=== PATIENT | female | born 1950 | race Caucasian/White ===

== ENCOUNTER → 2018-07-28 | Outpatient (CLI) | payer MEDICARE, OTHER ==
[~2018-07-28] MED LIST: CITA-156 PO; CITA20SO PO; GABA-503 PO; GABA-549 PO; MIRT-1 PO; PREG50CA48 PO; ZOLP-1 PO
[2018-07-28 14:47] LABS: PLATELET COUNT, AUTOMATED 297 K/uL (150-450)
[2018-07-28 15:08] LABS: LDL CHOLESTEROL 90 mg/dl
--- NOTE | 2018-07-29 14:19 | EKG ---
[place] [facility] [place] NAME: DAMION BOWDEN : [id number] MR: [id number] V: [id number] EXAM DATE: ORDERING PHYSICIAN: FAUSTO JOHNSON TECHNOLOGIST: PASQUALE Test Reason : AFIB Blood Pressure : / mmHG Vent. Rate : 095 BPM Atrial Rate : 340 BPM P-R Int : 000 ms QRS Dur : 084 ms QT Int : 352 ms P-R-T Axes : 000 216 169 degrees QTc Int : 442 ms Atrial fibrillation Low voltage QRS Inferior infarct , age undetermined Abnormal ECG No previous ECGs available Referred By: MEGAN Confirmed By:
== END ==
LOC: LAB 14:15
PROVIDERS: ATTEND Internal Medicine
DX: F41.9 Anxiety disorder, unspecified (principal); I48.91 Unspecified atrial fibrillation; Z86.69 Personal history of other diseases of the nervous system and sense organs; Z86.2 Personal history of diseases of the blood and blood-forming organs and certain disorders involving the immune mechanism; G47.33 Obstructive sleep apnea (adult) (pediatric); R41.3 Other amnesia
CPT/HCPCS: 36415; 81001; 82040; 82247; 82306; 82310; 82374; 82435; 82465; 82565; 82607; 82728; 82746; 82947; 83540; 83550; 83718; 84075; 84132; 84155; 84295; 84443; 84450; 84460; 84478; 84520; 84550; 85025

== ENCOUNTER → 2018-08-07 | Outpatient (CLI) | payer MEDICARE, OTHER ==
[~2018-08-07] MED LIST changes: +MIRT-25 PO
== END ==
LOC: US 01:16
PROVIDERS: ATTEND Internal Medicine
DX: I07.1 Rheumatic tricuspid insufficiency (principal); I34.0 Nonrheumatic mitral (valve) insufficiency
CPT/HCPCS: 93306

== ENCOUNTER → 2018-08-13 | Outpatient (CLI) | payer MEDICARE, OTHER ==
[~2018-08-13] MED LIST changes: +WARF5TAB23 PO
[2018-08-13 15:05] LABS: INR 0.91
== END ==
LOC: LAB 14:15
PROVIDERS: ATTEND Internal Medicine
DX: Z79.01 Long term (current) use of anticoagulants (principal)
CPT/HCPCS: 36415; 85610

== ENCOUNTER → 2018-08-27 | Outpatient (CLI) | payer MEDICARE, OTHER ==
[2018-08-27 15:59] LABS: INR 2.46
== END ==
LOC: LAB 15:19
PROVIDERS: ATTEND Internal Medicine
DX: Z79.01 Long term (current) use of anticoagulants (principal)
CPT/HCPCS: 36415; 85610

== ENCOUNTER → 2018-09-04 | Outpatient (CLI) | payer MEDICARE, OTHER ==
[2018-09-04 12:21] LABS: INR 3.2
== END ==
LOC: LAB 11:54
PROVIDERS: ATTEND Internal Medicine
DX: Z51.81 Encounter for therapeutic drug level monitoring (principal); Z79.01 Long term (current) use of anticoagulants; I48.1 Persistent atrial fibrillation
CPT/HCPCS: 36415; 85610

== ENCOUNTER → 2018-09-07 | Outpatient (CLI) | payer MEDICARE, OTHER ==
[2018-09-07 11:40] LABS: INR 2.81
== END ==
LOC: LAB 11:23
PROVIDERS: ATTEND Internal Medicine
DX: I48.91 Unspecified atrial fibrillation (principal)
CPT/HCPCS: 36415; 85610

== ENCOUNTER → 2018-09-18 | Outpatient (CLI) | payer MEDICARE, OTHER ==
[~2018-09-18] MED LIST changes: +AMIO200T49 PO; +OMEP40CA48 PO
== END ==
LOC: LAB 10:31
PROVIDERS: ATTEND Internal Medicine
DX: Z51.81 Encounter for therapeutic drug level monitoring (principal); Z79.01 Long term (current) use of anticoagulants; I48.1 Persistent atrial fibrillation

== ENCOUNTER → 2018-09-18 | Outpatient (CLI) | payer MEDICARE, OTHER ==
[2018-09-18 11:04] LABS: PLATELET COUNT, AUTOMATED 327 K/uL (150-450)
[2018-09-18 11:12] LABS: INR 4.58
== END ==
LOC: LAB 10:28
PROVIDERS: ATTEND Nurse Practitioner Primary Care
DX: K92.1 Melena (principal)
CPT/HCPCS: 36415; 85025; 85610

== ENCOUNTER → 2018-09-25 | Outpatient (CLI) | payer MEDICARE, OTHER ==
[2018-09-25 11:25] LABS: INR 1.84
== END ==
LOC: LAB 10:57
PROVIDERS: ATTEND Internal Medicine
DX: I48.91 Unspecified atrial fibrillation (principal)
CPT/HCPCS: 36415; 85610

== ENCOUNTER → 2018-09-28 | Outpatient (CLI) | payer MEDICARE, OTHER ==
[~2018-09-28] MED LIST changes: +FERR325T24 PO
[2018-09-28 11:32] LABS: PLATELET COUNT, AUTOMATED 403 K/uL (150-450)
== END ==
LOC: LAB 10:42
PROVIDERS: ATTEND Nurse Practitioner Primary Care
DX: K92.1 Melena (principal)
CPT/HCPCS: 36415; 82040; 82247; 82310; 82374; 82435; 82565; 82728; 82947; 83540; 83550; 84075; 84132; 84155; 84295; 84450; 84460; 84520; 85025

== ENCOUNTER → 2018-09-28 | Outpatient (CLI) | payer MEDICARE, OTHER ==
[2018-09-28 11:37] LABS: INR 2.06
== END ==
LOC: LAB 10:45
PROVIDERS: ATTEND Internal Medicine
DX: I48.91 Unspecified atrial fibrillation (principal); Z79.01 Long term (current) use of anticoagulants
CPT/HCPCS: 85610

== ENCOUNTER → 2018-09-30 | Outpatient (CLI) | payer MEDICARE, OTHER ==
[2018-09-30 11:45] LABS: INR 2.34
== END ==
LOC: LAB 11:11
PROVIDERS: ATTEND Internal Medicine
DX: Z51.81 Encounter for therapeutic drug level monitoring (principal); Z79.01 Long term (current) use of anticoagulants; I48.1 Persistent atrial fibrillation
CPT/HCPCS: 36415; 85610

== ENCOUNTER 2018-10-09 11:32 | Emergency (ER) | payer MEDICARE, OTHER ==
[~2018-10-09 11:32] MED LIST changes: +DULO30CA35 PO; +DULO60CA56 PO; -GABA-503 PO; +GABA-533 PO
--- NOTE | 2018-10-09 11:52 | ER Report ---
History and Physical Time Seen By MD: 11:52 HPI/ROS CHIEF COMPLAINT: Unintentional weight gain and edema HISTORY OF PRESENT ILLNESS: This is a 68-year-old female who presents to the emergency department for unintentional weight gain and edema. Patient states that over the last 2 weeks she's had about a 14+ pound weight gain, increased edema in her lower extremities, she also has some mild dyspnea and eyelid edema. She states that about a month or 2 months ago she had bronchitis, was and resolved, however the last several weeks she has had an increase a nonproductive cough, with some mild dyspnea over the last several days. Also has some edema to the left inferior orbit, non celluilitic. No chest pain, no nausea or vomiting. SPO2 upon arrival was 83% on RA, patient does not wear oxygen. No history of congestive heart failure. Status post cardioversion October 01 for atria fibrillation. Started on warfarin approximately 2 months ago. She is also on amiodarone. REVIEW OF SYSTEMS: Constitutional: No fever, no chills. Eyes: No discharge. ENT: No sore throat. Cardiovascular: As above. Respiratory: As above. Gastrointestinal: No abdominal pain, no vomiting. Genitourinary: No hematuria. Musculoskeletal: As above. Skin: No rashes. Neurological: No headache. Allergies: Coded Allergies: bupropion (Verified Allergy, Intermediate, 10/09/18) erythromycin base (Verified Allergy, Intermediate, 10/09/18) Home Meds Active Scripts Furosemide (FUROSEMIDE) 20 Mg Tablet, 2 TAB PO Q6H for 3 Days, #6 TAB 0 Refills Prov:VANITA RINCON [facility]- 10/09/18 Ferrous Sulfate (IRON) 325 Mg Tablet, 1 CAP PO BID, #60 TAB 0 Refills Prov:CLAUDIA STANLEY DNP [facility] 10/01/18 Omeprazole (OMEPRAZOLE) 40 Mg Capsule., 1 TAB PO QDAY for 30 Days, #30 CAP 0 Refills Prov:CLAUDIA STANLEY DNP, [facility] 09/15/18 Warfarin Sodium (WARFARIN SODIUM) 5 Mg Tablet, 5 MG PO QDAY, #30 TAB 6 Refills Prov:FAUSTO BENTLEY MD 08/13/18 Mirtazapine (MIRTAZAPINE) 30 Mg Tablet, 30 MG PO QHS, #30 TAB 3 Refills Prov:FAUSTO BENTLEY MD 08/03/18 Reported Medications Warfarin Sodium (WARFARIN SODIUM) 5 Mg Tablet, 2.5 MG PO FRIDAY, FRIDAY , TAB 10/09/18 Amiodarone Hcl (AMIODARONE HCL) Unknown Strength Tablet, 500 MG PO QDAY, TAB 09/15/18 Gabapentin (GABAPENTIN) 600 Mg Tablet, 600 MG PO QID 07/28/18 Discontinued Reported Medications Citalopram Hydrobromide (CELEXA) 20 Mg Tablet, 20 MG PO QDAY, #5 TAB 07/28/18 Discontinued Scripts Duloxetine Hcl (CYMBALTA) 60 Mg Capsule., 60 MG PO QDAY, #30 CAP 5 Refills Prov:FAUSTO BENTLEY MD 10/02/18 Duloxetine Hcl (CYMBALTA) 30 Mg Capsule., 30 MG PO QDAY, #7 CAP Prov:FAUSTO BENTLEY MD 10/02/18 Past Medical/Surgical History The patient has a past medical and surgical history of cardioversion, appendectomy, urinary retention, leg fracture, bilateral foot surgeries, knee surgery, wears glasses, depression, hysterectomy. Reviewed Nurses Notes: Yes Smoking Status: Current: Every Day Smoker Constitutional Vital Sign - Last 24 Hours 10/09/18 10/09/18 10/09/18 10/09/18 11:47 11:48 11:50 12:00 Temp 98.1 Pulse 71 Resp 18 18 B/P (MAP) 151/90 (110) 151/90 140/63 (88) Pulse Ox 82 85 O2 Delivery Room Air Room Air 10/09/18 10/09/18 10/09/18 10/09/18 12:02 12:30 12:32 12:37 Pulse 67 63 63 B/P (MAP) 147/65 (92) Pulse Ox 92 94 95 10/09/18 10/09/18 10/09/18 10/09/18 12:38 12:38 12:46 13:00 Pulse 62 60 Resp 16 16 B/P (MAP) 151/64 (93) Pulse Ox 94 O2 Delivery Nasal Cannula O2 Flow Rate 1.5 10/09/18 10/09/18 10/09/18 10/09/18 13:07 13:30 13:30 13:37 Pulse 59 65 Resp 11 14 B/P (MAP) 143/69 (93) Pulse Ox 94 87 O2 Flow Rate 2.0 10/09/18 10/09/18 14:33 15:30 Pulse 55 B/P (MAP) 145/56 (85) 142/69 (93) Physical Exam General Appearance: The patient is alert, has no immediate need for airway protection and no signs of toxicity. Eyes: Pupils equal and round no pallor or injection. Mild edema to the left infe rior orbit. ENT, Mouth: Mucous membranes are moist. Respiratory: There are no retractions, lungs are clear to auscultation. Cardiovascular: Regular rate and rhythm, systolic murmur, no clicks or rubs. Gastrointestinal: Abdomen is soft and non tender, no masses, bowel sounds normal. Neurological: Alert and oriented 4. Moving all cavities. Following THIS. No focal neuro deficits. Skin: Warm and dry, no rashes. Musculoskeletal: Neck is supple non tender. Extremities nonpitting edema to bilateral lower extremities. No weeping. No cellulitis. DIFFERENTIAL DIAGNOSIS: After history and physical exam differential diagnosis was considered for congestive heart failure, electrolyte imbalance, low protein, recurrent atrial fibrillation. Medical Decision Making Data Points Result Diagram: 10/09/18 1222 10/09/18 1222 Laboratory Hematology Test 10/09/18 12:22 Red Blood Count 3.82 M/uL (4.17-5.56) Mean Corpuscular Volume 85.5 fL (80.0-96.0) Mean Corpuscular Hemoglobin 27.0 pg (26.0-33.0) Mean Corpuscular Hemoglobin Concent 31.6 g/dL (32.0-36.0) Red Cell Distribution Width 16.6 % (11.5-14.5) Mean Platelet Volume 7.2 fL (7.2-11.1) Neutrophils (%) (Auto) 65.3 % (39.4-72.5) Lymphocytes (%) (Auto) 22.7 % (17.6-49.6) Monocytes (%) (Auto) 7.4 % (4.1-12.4) Eosinophils (%) (Auto) 2.5 % (0.4-6.7) Basophils (%) (Auto) 2.1 % (0.3-1.4) Nucleated RBC Relative Count (auto) 0.1 /100WBC Neutrophils # (Auto) 4.1 K/uL (2.0-7.4) Lymphocytes # (Auto) 1.4 K/uL (1.3-3.6) Monocytes # (Auto) 0.5 K/uL (0.3-1.0) Eosinophils # (Auto) 0.2 K/uL (0.0-0.5) Basophils # (Auto) 0.1 K/uL (0.0-0.1) Nucleated RBC Absolute Count (auto) 0.01 K/uL Prothrombin Time 31.3 seconds (12.0-14.4) Prothromb Time International Ratio 2.95 Activated Partial Thromboplast Time 40 seconds (23-35) D-Dimer Quantitative (PE/DVT) 0.43 ug/ml (0-0.50) Sodium Level 142 mmol/L (137-145) Potassium Level 3.3 mmol/L (3.5-5.0) Chloride Level 108 mmol/L (98-107) Carbon Dioxide Level 27 mmol/L (22-31) Blood Urea Nitrogen 12 mg/dl (7-18) Creatinine 0.70 mg/dl (0.52-1.04) Glomerular Filtration Rate Calc > 60.0 Random Glucose 119 mg/dl (75-110) Calcium Level 8.8 mg/dl (8.4-10.2) Total Bilirubin 0.7 mg/dl (0.2-1.3) Aspartate Amino Transf (AST/SGOT) 28 U/L (0-35) Alanine Aminotransferase (ALT/SGPT) 33 U/L (0-56) Alkaline Phosphatase 84 U/L (0-126) Troponin I < 0.012 ng/ml B-Type Natriuretic Peptide 103 pg/ml (0-100) Total Protein 6.4 g/dl (6.3-8.2) Albumin 3.6 g/dl (3.5-5.0) Chemistry Test 10/09/18 12:22 White Blood Count 6.2 k/uL (4.5-11.0) Red Blood Count 3.82 M/uL (4.17-5.56) Hemoglobin 10.3 g/dL (12.0-16.0) Hematocrit 32.7 % (34.0-47.0) Mean Corpuscular Volume 85.5 fL (80.0-96.0) Mean Corpuscular Hemoglobin 27.0 pg (26.0-33.0) Mean Corpuscular Hemoglobin Concent 31.6 g/dL (32.0-36.0) Red Cell Distribution Width 16.6 % (11.5-14.5) Platelet Count 378 K/uL (150-450) Mean Platelet Volume 7.2 fL (7.2-11.1) Neutrophils (%) (Auto) 65.3 % (39.4-72.5) Lymphocytes (%) (Auto) 22.7 % (17.6-49.6) Monocytes (%) (Auto) 7.4 % (4.1-12.4) Eosinophils (%) (Auto) 2.5 % (0.4-6.7) Basophils (%) (Auto) 2.1 % (0.3-1.4) Nucleated RBC Relative Count (auto) 0.1 /100WBC Neutrophils # (Auto) 4.1 K/uL (2.0-7.4) Lymphocytes # (Auto) 1.4 K/uL (1.3-3.6) Monocytes # (Auto) 0.5 K/uL (0.3-1.0) Eosinophils # (Auto) 0.2 K/uL (0.0-0.5) Basophils # (Auto) 0.1 K/uL (0.0-0.1) Nucleated RBC Absolute Count (auto) 0.01 K/uL Prothrombin Time 31.3 seconds (12.0-14.4) Prothromb Time International Ratio 2.95 Activated Partial Thromboplast Time 40 seconds (23-35) D-Dimer Quantitative (PE/DVT) 0.43 ug/ml (0-0.50) Glomerular Filtration Rate Calc > 60.0 Calcium Level 8.8 mg/dl (8.4-10.2) Total Bilirubin 0.7 mg/dl (0.2-1.3) Aspartate Amino Transf (AST/SGOT) 28 U/L (0-35) Alanine Aminotransferase (ALT/SGPT) 33 U/L (0-56) Alkaline Phosphatase 84 U/L (0-126) Troponin I < 0.012 ng/ml B-Type Natriuretic Peptide 103 pg/ml (0-100) Total Protein 6.4 g/dl (6.3-8.2) Albumin 3.6 g/dl (3.5-5.0) Coagulation Test 10/09/18 12:22 Prothrombin Time 31.3 seconds Prothromb Time International Ratio 2.95 Activated Partial Thromboplast Time 40 seconds D-Dimer Quantitative (PE/DVT) 0.43 ug/ml EKG/Imaging EKG Interpretation 12 lead EKG: The EKG 1234. Rhythm: Sinus rhythm, first-degree AV block, ventricular rate 62 bpm. [place]: Left axis deviation. QRS: normal ST segments: No ST depression or elevation identified. Poor T-wave progression, in the field leads, inverted T waves in V3, V4, V5 and V6. 07/28/2018 EKG showing atrial fibrillation. Imaging Location: [facility] - [place] Patient: Isabella Fountain : 1950 Visit/Account:[id number] Date of Sevice: 10/09/2018 CT CHEST (CONTRAST) History: eval for hiat hernia, with low spo2 TECHNIQUE: Contiguous axial images were performed through the chest to the level of the adrenal glands following the administration of IV contrast. Coronal and sagittal reformatting was also performed.Dose Lowering Technique One of the following dose optimization techniques was utilized in the performance of this exam: Automated exposure control; adjustment of the mA and/or kV according to the patient's size; or use of an iterative reconstruction technique. Specific details can be referenced in the facility's radiology CT exam operational policy. Contrast: 75 mL Isovue-370 COMPARISON STUDIES: Two-view chest today Lungs / Pleura: Thereare peripheral groundglass opacities seen in the anterior upper lobes. Patchy area of airspace consolidation seen in the posterior superior segment of the right lower lobe and in the posterior segments of both lower lobes and the inferior lingula. This could represent multifocal infiltrates or areas of chronic change. No pleural effusions are identified. Mediastinum/nodes: There is a 1.2 x 1 cm pretracheal lymph node small subcentimeter precarinal and prevascular space lymph nodes There is a 1.3 cm left thyroid nodule for which thyroid ultrasound may be he lpful. There is a very large hiatal hernia present Heart and vessels: There are coronary artery calcifications present Musculoskeletal / Body wall: There spondylotic changes of the thoracic spine Upper abdomen: Cholelithiasis although no evidence of bony ductal dilatation. There is a patchy area of arterial perfusion along the posterior medial aspect of the right lobe the liver. This may simply represent perfusional variant however if of concern clinically this could be further evaluated with ultrasound or MR IMPRESSION: Very large hiatal hernia Peripheral ground glass opacities in the anterior upper lobes and patchy airspace consolidation the posterior superior segment of the right lower lobe and in the posterior segments of both lower lobes and inferior lingula. These could represent areas of multifocal infiltrate or areas of chronic change. Small mediastinal lymph nodes 1.3 cm left thyroid nodule for which thyroid ultrasound may be helpful Cholelithiasis although no evidence of bony ductal dilatation Area of patchy arterial perfusion along the posterior medial aspect the right lobe of the liver. This may simple represent a perfusional variant. If c linical concern further evaluation with ultrasound or MR may be helpful Report Dictated By: Candy Jiang MD at 10/09/2018 2:46 PM Report E-Signed By: Candy Jiang MD at 10/09/2018 2:52 PM WSN:[email or web address] Location: [facility] [place] Patient: Isabella Fountain : 1950 Visit/Account:[id number] Date of Sevice: 10/09/2018 Exam type: CHEST PA LAT History: hypoxia, unintentional wt gain Comparison: None. Findings: There is a very large hiatal hernia with an air-fluid level projecting in the retrocardiac space. Small amount linear stranding in the right middle lobe may represent scarring versus atelectasis. There is blunting of both costophrenic angles consistent with pleural thickening versus pleural effusions. There is no evidence of overt pulmonary edema. Cardiac silhouette appears mildly enlarged. There is mild to moderate degenerative changes of the thoracic spine IMPRESSION: 1. Very large hiatal hernia with air-fluid level projecting in the retrocardiac space Linear scarring versus atelectasis the right middle lobe Blunting of both costophrenic angles consistent with pleural thickening versus pleural effusions (there are no prior studies available for comparison) Report Dictated By: Candy Jiang MD at 10/09/2018 1:22 PM Report E-Signed By: Candy Jiang MD at 10/09/2018 1:23 PM [place] ED Course/Re-evaluation Clinical Indication for ER IV: IV Access ED Course The patient was admitted to room. A history and physical were obtained. Differential diagnoses were considered. An IV was started. CBC showing hemoglobin and hematocrit 0.3 and 32.7, potassium 3.3. The patient was given 40 mg IV Lasix. A two-view chest x-ray showing Very large hiatal hernia with air- fluid level projecting in the retrocardiac space, Linear scarring versus atelectasis the right middle lobe. I was still concerned about the hypoxia, a CT of the chest showing a Very large hiatal hernia Peripheral ground glass opacities in the anterior upper lobes and patchy airspace consolidation the posterior superior segment of the right lower lobe and in the posterior segments of both lower lobes and inferior lingula. These could represent areas of multifocal infiltrate or areas of chronic change. I reviewed this with the patient,, I also reviewed the case with Dr. Branch as noted below, did not feel that she warranted antibiotics at this time she is not febrile, normal white blood cell count, the likelihood of a pneumonia is low at this time. A room air trial after the furosemide was at 83%. She was placed back on oxygen., Patient did not list in the hospital, she would prefer to go home. The patient was set up with home oxygen and discharged. She was also placed on 3 days worth of Lasix, instructed to take additional potassium and follow-up with her primary care provider next week. She was also instructed to return immediately for any other concerns or worsening symptoms. She comes to understanding was discharged home. EKG showing normal sinus rhythm with first-degree AV block. We also discussed the hernia, she will follow-up with Dr. Hooks. 10/09/2018 4:40:34 pm I did speak with Dr. Lakia Branch regarding the patients case, however the patient would prefer to go home instead of admitting to the hospital. Patient will be going home on oxygen. I also spoke with Dr. Hooks the surgeon on-call regarding the patient's new diagnosis of large hiatal hernia, he will follow up with her soon regarding the hernia. The patient is aware and agreeable. The patient will also follow up with her primary care provider early next week. Decision to Disposition Date: Oct 09, 2018 Decision to Disposition Time: 16:11 Depart Departure Latest Vital Signs Vital Signs Date Time Temp Pulse Resp B/P (MAP) Pulse Ox O2 Delivery O2 Flow Rate FiO2 10/09/18 15:30 55 142/69 (93) 10/09/18 13:37 14 87 10/09/18 13:30 2.0 10/09/18 12:38 Nasal Cannula 10/09/18 11:50 98.1 Impression: Primary Impression: Hypoxia Additional Impressions: Lower extremity edema Large hiatal hernia Condition: Improved Disposition: HOME OR SELF-CARE Referrals: FAUSTO BENTLEY MD (PCP) 5 Days BERT HOOKS 1 Week New Scripts Furosemide (FUROSEMIDE) 20 Mg Tablet 2 TAB PO Q6H for 3 Days, #6 TAB 0 Refills Prov: VANITA RINCON 10/09/18 Departure Forms: ER Transition Record, Home Oxygen, Nebulizer RX, Home Oxygen Company Chosen by Patient: [employer] Durable Medical Equipment-Oxygen: Oxygen Concentrator, Portable Oxygen Gas Reason for Use/Diagnosis: Edema, hypoxia and dyspnea Start Date of the Order: Oct 09, 2018 Dosage or Concentration (if applicable) - LPM: 2 Route of Administration (if applicable): Nasal Cannula Frequency of Use: Continuous Duration Home O2 Required: 30 Duration Units: Days Room Air Oxygen Saturation: 83 ER Prescribing Physician's Name: Other NPI Numbers for Local ER MDs: Other Medications Reconciliation, Patient Portal Information Patient Instructions: Edema (ED), Hiatal Hernia (ED), Hypoxia (ED) Additional Instructions: Please use the Oxygen continuously until you follow up with Dr. Bentley and he specifies if you should continue the Oxygen. Take the lasix X3 days. Increase your dietary potassium. Get plenty of rest. Please follow up with Dr. Bentley within one week for reevaluation. You will likely need a repeat echo. Return to the emergency room for any concerns or worsening symptoms. Please follow-up with Dr. Hooks as well for the hiatal hernia. Problem Qualifiers VANITA RINCON Oct 09, 2018 11:52
[2018-10-09] MEDS ORDERED: WARF5TAB23 PO (11:59)
[2018-10-09] MEDS ORDERED: ALBUTEROL/IPRATROPIUM 3 ML NEB NEB ONE (12:15)
[2018-10-09 12:41] LABS: PLATELET COUNT, AUTOMATED 378 K/uL (150-450)
--- NOTE | 2018-10-09 12:51 | EKG ---
FACILITY: [facility] [place] PATIENT NAME: DAMION BOWDEN : [id number] MR: [id number] V: [id number] EXAM DATE: ORDERING PHYSICIAN: VANITA RINCON TECHNOLOGIST: Test Reason : Blood Pressure : / mmHG Vent. Rate : 062 BPM Atrial Rate : 062 BPM P-R Int : 226 ms QRS Dur : 100 ms QT Int : 482 ms P-R-T Axes : 049 -31 -44 degrees QTc Int : 489 ms Sinus rhythm with 1st degree AV block Left axis deviation T wave abnormality, consider anterolateral ischemia Prolonged QT Abnormal ECG When compared with ECG of 28-JUL-2018 13:29, Now in sinus rhythm and no longer in atrial fibrillation Now with diffuse T inversion with QRS axis changes Confirmed by GHADA WEEMS ([id number]) on 10/09/2018 2:01:20 PM Referred By: Confirmed By:GHADA WEEMS
[2018-10-09] MEDS ORDERED: FUROSEMIDE 40 MG/4 ML VIAL IVP ONE (13:25)
[2018-10-09 13:28] LABS: INR 2.95
--- NOTE | 2018-10-09 13:28 | RADIOLOGY IMAGING REPORT ---
FACILITY: [facility] - [place] PATIENT NAME: Isabella Fountain : 1950 MR: [id number] V: [id number] EXAM DATE: ORDERING PHYSICIAN: VANITA RINCON TECHNOLOGIST: Location: [facility] [place] Patient: Isabella Fountain : 1950 Visit/Account:[id number] Date of Sevice: 10/09/2018 Exam type: CHEST PA LAT History: hypoxia, unintentional wt gain Comparison: None. Findings: There is a very large hiatal hernia with an air-fluid level projecting in the retrocardiac space. Sm all amount linear stranding in the right middle lobe may represent scarring versus atelectasis. Ther e is blunting of both costophrenic angles consistent with pleural thickening versus pleural effusions . There is no evidence of overt pulmonary edema. Cardiac silhouette appears mildly enlarged. There is mild to moderate degenerative changes of the thoracic spine IMPRESSION: 1. Very large hiatal hernia with air-fluid level projecting in the retrocardiac space Linear scarring versus atelectasis the right middle lobe Blunting of both costophrenic angles consistent with pleural thickening versus pleural effusions (the re are no prior studies available for comparison) Report Dictated By: Candy Jiang MD at 10/09/2018 1:22 PM Report E-Signed By: Candy Jiang MD at 10/09/2018 1:23 PM WSN:[email or web address]
--- NOTE | 2018-10-09 14:55 | RADIOLOGY IMAGING REPORT ---
FACILITY: [facility] PATIENT NAME: Isabella Fountain : 1950 MR: [id number] V: [id number] EXAM DATE: ORDERING PHYSICIAN: VANITA RINCON TECHNOLOGIST: Location: Patient: Isabella Fountain : 1950 Visit/Account:[id number] Date of Sevice: 10/09/2018 CT CHEST (CONTRAST) History: eval for hiat hernia, with low spo2 TECHNIQUE: Contiguous axial images were performed through the chest to the level of the adrenal gla nds following the administration of IV contrast. Coronal and sagittal reformatting was also perform ed.Dose Lowering Technique One of the following dose optimization techniques was utilized in the performance of this exam: Autom ated exposure control; adjustment of the mA and/or kV according to the patient's size; or use of an i terative reconstruction technique. Specific details can be referenced in the facility's radiology C T exam operational policy. Contrast: 75 mL Isovue-370 COMPARISON STUDIES: Two-view chest today Lungs / Pleura: Thereare peripheral groundglass opacities seen in the anterior upper lobes. Patchy area of airspace consolidation seen in the posterior superior segment of the right lower lobe and in the posterior segments of both lower lobes and the inferior lingula. This could represent multifoca l infiltrates or areas of chronic change. No pleural effusions are identified. Mediastinum/nodes: There is a 1.2 x 1 cm pretracheal lymph node small subcentimeter precarinal and p revascular space lymph nodes There is a 1.3 cm left thyroid nodule for which thyroid ultrasound may be helpful. There is a very l arge hiatal hernia present Heart and vessels: There are coronary artery calcifications present Musculoskeletal / Body wall: There spondylotic changes of the thoracic spine Upper abdomen: Cholelithiasis although no evidence of bony ductal dilatation. There is a patchy ar ea of arterial perfusion along the posterior medial aspect of the right lobe the liver. This may sim ply represent perfusional variant however if of concern clinically this could be further evaluated wi th ultrasound or MR IMPRESSION: Very large hiatal hernia Peripheral ground glass opacities in the anterior upper lobes and patchy airspace consolidation the p osterior superior segment of the right lower lobe and in the posterior segments of both lower lobes a nd inferior lingula. These could represent areas of multifocal infiltrate or areas of chronic change . Small mediastinal lymph nodes 1.3 cm left thyroid nodule for which thyroid ultrasound may be helpful Cholelithiasis although no evidence of bony ductal dilatation Area of patchy arterial perfusion along the posterior medial aspect the right lobe of the liver. Thi s may simple represent a perfusional variant. If clinical concern further evaluation with ultrasound or MR may be helpful Report Dictated By: Cnady Jiang MD at 10/09/2018 2:46 PM Report E-Signed By: Candy Jiang MD at 10/09/2018 2:52 PM WSN:[email or web address]
[2018-10-09 15:30] VITALS: BP 142/69
[2018-10-09] MEDS ORDERED: FURO-45 PO (16:18)
== END 2018-10-09 17:27 | disposition home or self-care (01) ==
LOC: ER 11:49
DX: R09.02 Hypoxemia (principal); R60.0 Localized edema; K44.9 Diaphragmatic hernia without obstruction or gangrene; I44.0 Atrioventricular block, first degree
CPT/HCPCS: 71046; 71260; 83880; 84484; 85025; 85379; 85610; 85730; 93005; 94640; 96374; 99284; J1940; J7620; 82040; 82247; 82310; 82374; 82435; 82565; 82947; 84075; 84132; 84155; 84295; 84450; 84460; 84520; Q9967

== ENCOUNTER → 2018-10-20 | Outpatient (CLI) | payer MEDICARE, OTHER ==
[~2018-10-20] MED LIST changes: +FURO-45 PO; +REGADENOSON 0.4 MG/5 ML SYR ONE
--- NOTE | 2018-10-20 12:02 | RADIOLOGY IMAGING REPORT ---
FACILITY: [facility] - [place] PATIENT NAME: Isabella Fountain : 1950 MR: [id number] V: [id number] EXAM DATE: ORDERING PHYSICIAN: RACHEL OSPINA TECHNOLOGIST: Location: [facility] Patient: Isabella Fountain : 1950 Visit/Account:[id number] Date of Sevice: 10/20/2018 REGADENOSON (LEXISCAN) MYOCARDIAL PERFUSION IMAGING. EXAMINATION: Single isotope SPECT imaging with regadenoson infusion and gated SPECT imaging. DATE OF EXAMINATION: October 20, 2018. REQUESTING PHYSICIAN:ANAI INDICATION: Atrial fibrillation PROCEDURE: After informed consent the patient received an intravenous injection of Tc-99m sestamibi followed at an appropriate time interval by rest imaging. The patient then subsequently received an intravenous infusion of 0.4 mg of regadenoson per protocol without complication. Resting heart rate was 57 bpm with a peak heart rate of 78 bpm. Blood pressure at rest was 139/70 and following infusi on was 132/56 . Baseline EKG demonstrates sinus rhythm. There were no EKG changes of ischemia follo wing infusion. Non-specific symptoms were reported. The patient then received an intravenous inject ion of Tc-99m sestamibi followed by stress imaging. DOSE of Tc-99m sestamibi (mCi): REST: 10.8 STRESS: 26.2 RAW DATA: Examination of the summed raw data revealed a good quality study. Diaphragmatic attenuatio n noted with resolution during prone imaging MYOCARDIAL PERFUSION: The tomographic images demonstrate normal myocardial perfusion with prone imag ing. GATED IMAGES: The gated images demonstrate normal LV systolic performance and wall motion with LVEF 75%. IMPRESSION: 1. Nondiagnostic ECG portion of Lexiscan stress test. 2. Normal myocardial perfusion study without evidence of myocardial ischemia or infarct 3. Normal LV systolic performance and wall motion with LVEF 75% Report Dictated By: Huber Gutiérrez at 10/20/2018 11:54 AM Report E-Signed By: Huber Gutiérrez at 10/20/2018 11:58 AM WSN:[id number]
== END ==
LOC: NUC 01:27
PROVIDERS: ATTEND Internal Medicine
DX: I48.1 Persistent atrial fibrillation (principal)
CPT/HCPCS: 78452; 93017; A9500; J2785

== ENCOUNTER → 2018-10-23 | Outpatient (CLI) | payer MEDICARE, OTHER ==
[~2018-10-23] MED LIST changes: -REGADENOSON 0.4 MG/5 ML SYR ONE
[2018-10-23 11:25] LABS: PLATELET COUNT, AUTOMATED 300 K/uL (150-450)
[2018-10-23 11:36] LABS: INR 3.19
== END ==
LOC: LAB 10:54
PROVIDERS: ATTEND Internal Medicine
DX: I48.91 Unspecified atrial fibrillation (principal); Z86.2 Personal history of diseases of the blood and blood-forming organs and certain disorders involving the immune mechanism
CPT/HCPCS: 36415; 85025; 85610

== ENCOUNTER → 2018-10-29 | Outpatient (CLI) | payer MEDICARE, OTHER ==
[~2018-10-29] MED LIST changes: +IBUP-56 PO
[2018-10-29 13:58] LABS: PLATELET COUNT, AUTOMATED 361 K/uL (150-450)
== END ==
LOC: LAB 13:25
PROVIDERS: ATTEND Internal Medicine
DX: I48.91 Unspecified atrial fibrillation (principal); Z86.2 Personal history of diseases of the blood and blood-forming organs and certain disorders involving the immune mechanism; F41.9 Anxiety disorder, unspecified
CPT/HCPCS: 36415; 82040; 82247; 82310; 82374; 82435; 82565; 82728; 82947; 83540; 83550; 84075; 84132; 84155; 84295; 84450; 84460; 84520; 85025

== ENCOUNTER → 2018-10-29 | Outpatient (CLI) | payer MEDICARE, OTHER ==
[2018-10-29 14:30] LABS: INR 2.78
== END ==
LOC: LAB 13:53
PROVIDERS: ATTEND Internal Medicine
DX: Z51.81 Encounter for therapeutic drug level monitoring (principal); Z79.01 Long term (current) use of anticoagulants; I48.1 Persistent atrial fibrillation
CPT/HCPCS: 36415; 85610

== ENCOUNTER 2018-11-07 10:39 | Emergency (ER) | payer MEDICARE, OTHER ==
--- NOTE | 2018-11-07 10:51 | ER Report ---
History and Physical Time Seen By MD: 10:50 HPI/ROS CHIEF COMPLAINT: Cough, congestion, general malaise HISTORY OF PRESENT ILLNESS: Patient is a 68-year-old female here with complaints of the above. Patient was general malaise, decreased appetite. Patient is hemodynamically stable at time of evaluation, afebrile. Denies abdominal pain, dysuria, hematuria, melena. Patient is tolerating oral intake. REVIEW OF SYSTEMS: Constitutional: Subjective fever Eyes: No discharge. ENT: No sore throat. +Congestion Cardiovascular: No chest pain, no palpitations. Respiratory: + cough, mild shortness of breath. Gastrointestinal: No abdominal pain, no vomiting. Genitourinary: No hematuria. Musculoskeletal: No back pain. Skin: No rashes. Neurological: No headache. Allergies: Coded Allergies: bupropion (Verified Allergy, Intermediate, 10/09/18) erythromycin base (Verified Allergy, Intermediate, 10/09/18) Home Meds Active Scripts Duloxetine Hcl (CYMBALTA) 60 Mg Capsule.dr, 60 MG PO QDAY, #90 CAP 2 Refills Prov:FAUSTO JOHNSON MD 10/27/18 Omeprazole (OMEPRAZOLE) 40 Mg Capsule.dr, 1 TAB PO QDAY for 30 Days, #30 CAP 0 Refills Prov:CLAUDIA STANLEY DNP, FNP-RAYMUNDO 09/15/18 Warfarin Sodium (WARFARIN SODIUM) 5 Mg Tablet, 5 MG PO QDAY, #30 TAB 6 Refills Prov:FAUSTO JOHNSON MD 08/13/18 Mirtazapine (MIRTAZAPINE) 30 Mg Tablet, 30 MG PO QHS, #30 TAB 3 Refills Prov:FAUSTO JOHNSON MD 08/03/18 Reported Medications Ibuprofen (IBUPROFEN) 200 Mg Tablet, 2 TAB PO PRN, TAB 11/02/18 Warfarin Sodium (WARFARIN SODIUM) 5 Mg Tablet, 2.5 MG PO PP, TAB 10/09/18 Amiodarone Hcl (AMIODARONE HCL) Unknown Strength Tablet, 200 MG PO QDAY, TAB 09/15/18 Gabapentin (GABAPENTIN) 600 Mg Tablet, 600 MG PO QID 07/28/18 Discontinued Scripts Ferrous Sulfate (IRON) 325 Mg Tablet, 1 CAP PO BID, #60 TAB 0 Refills Prov:CLAUDIA STANLEY DNP, FNP-BC 10/01/18 Smoking Status: Current: Every Day Smoker Constitutional Vital Sign - Last 24 Hours 11/07/18 11/07/18 11/07/18 11/07/18 10:51 11:01 11:30 11:30 Temp 98.4 Pulse 76 76 Resp 16 16 Pulse Ox 94 92 O2 Delivery Nasal Cannula Nasal Cannula O2 Flow Rate 1.0 1.5 11/07/18 11/07/18 11/07/18 11/07/18 11:37 11:39 12:09 12:45 Pulse 75 75 74 75 Resp 16 18 27 18 B/P (MAP) 132/85 (101) Pulse Ox 90 92 95 O2 Delivery Nasal Cannula O2 Flow Rate 1 Physical Exam General Appearance: The patient is alert, has no immediate need for airway protection and no signs of toxicity. No acute distress Eyes: Pupils equal and round no pallor or injection. ENT, Mouth: Mucous membranes are moist. Respiratory: There are no retractions, lungs are clear to auscultation. Cardiovascular: Regular rate and rhythm. Gastrointestinal: Abdomen is soft and non tender, no masses, bowel sounds normal. Neurological: No focal neurological deficits Skin: Warm and dry, no rashes. Musculoskeletal: Neck is supple non tender. Extremities are nontender, nonswollen and have full range of motion. DIFFERENTIAL DIAGNOSIS: After history and physical exam differential diagnosis was considered for shortness of breath including but not limited to pulmonary infectious process, COPD, asthma, pulmonary embolus and congestive heart failure. Medical Decision Making Data Points Result Diagram: 11/07/18 1135 11/07/18 1135 Laboratory Hematology Test 11/07/18 10:59 11/07/18 11:35 Influenza Virus Type A (PCR) Negative (NEGATIVE) Influenza Virus Type B (PCR) Negative (NEGATIVE) Red Blood Count 3.83 M/uL (4.17-5.56) Mean Corpuscular Volume 87.1 fL (80.0-96.0) Mean Corpuscular Hemoglobin 27.6 pg (26.0-33.0) Mean Corpuscular Hemoglobin Concent 31.7 g/dL (32.0-36.0) Red Cell Distribution Width 20.0 % (11.5-14.5) Mean Platelet Volume 8.2 fL (7.2-11.1) Neutrophils (%) (Auto) 78.3 % (39.4-72.5) Lymphocytes (%) (Auto) 15.4 % (17.6-49.6) Monocytes (%) (Auto) 4.6 % (4.1-12.4) Eosinophils (%) (Auto) 0.8 % (0.4-6.7) Basophils (%) (Auto) 0.9 % (0.3-1.4) Nucleated RBC Relative Count (auto) 0.1 /100WBC Neutrophils # (Auto) 6.7 K/uL (2.0-7.4) Lymphocytes # (Auto) 1.3 K/uL (1.3-3.6) Monocytes # (Auto) 0.4 K/uL (0.3-1.0) Eosinophils # (Auto) 0.1 K/uL (0.0-0.5) Basophils # (Auto) 0.1 K/uL (0.0-0.1) Nucleated RBC Absolute Count (auto) 0.01 K/uL Sodium Level 141 mmol/L (137-145) Potassium Level 4.0 mmol/L (3.5-5.0) Chloride Level 114 mmol/L (98-107) Carbon Dioxide Level 22 mmol/L (22-31) Blood Urea Nitrogen 30 mg/dl (7-18) Creatinine 0.80 mg/dl (0.52-1.04) Glomerular Filtration Rate Calc > 60.0 Random Glucose 98 mg/dl (75-110) Calcium Level 9.0 mg/dl (8.4-10.2) Total Bilirubin 0.4 mg/dl (0.2-1.3) Aspartate Amino Transf (AST/SGOT) 26 U/L (0-35) Alanine Aminotransferase (ALT/SGPT) 37 U/L (0-56) Alkaline Phosphatase 64 U/L (0-126) Total Protein 6.5 g/dl (6.3-8.2) Albumin 4.0 g/dl (3.5-5.0) Chemistry Test 11/07/18 10:59 11/07/18 11:35 Influenza Virus Type A (PCR) Negative (NEGATIVE) Influenza Virus Type B (PCR) Negative (NEGATIVE) White Blood Count 8.6 k/uL (4.5-11.0) Red Blood Count 3.83 M/uL (4.17-5.56) Hemoglobin 10.6 g/dL (12.0-16.0) Hematocrit 33.4 % (34.0-47.0) Mean Corpuscular Volume 87.1 fL (80.0-96.0) Mean Corpuscular Hemoglobin 27.6 pg (26.0-33.0) Mean Corpuscular Hemoglobin Concent 31.7 g/dL (32.0-36.0) Red Cell Distribution Width 20.0 % (11.5-14.5) Platelet Count 284 K/uL (150-450) Mean Platelet Volume 8.2 fL (7.2-11.1) Neutrophils (%) (Auto) 78.3 % (39.4-72.5) Lymphocytes (%) (Auto) 15.4 % (17.6-49.6) Monocytes (%) (Auto) 4.6 % (4.1-12.4) Eosinophils (%) (Auto) 0.8 % (0.4-6.7) Basophils (%) (Auto) 0.9 % (0.3-1.4) Nucleated RBC Relative Count (auto) 0.1 /100WBC Neutrophils # (Auto) 6.7 K/uL (2.0-7.4) Lymphocytes # (Auto) 1.3 K/uL (1.3-3.6) Monocytes # (Auto) 0.4 K/uL (0.3-1.0) Eosinophils # (Auto) 0.1 K/uL (0.0-0.5) Basophils # (Auto) 0.1 K/uL (0.0-0.1) Nucleated RBC Absolute Count (auto) 0.01 K/uL Glomerular Filtration Rate Calc > 60.0 Calcium Level 9.0 mg/dl (8.4-10.2) Total Bilirubin 0.4 mg/dl (0.2-1.3) Aspartate Amino Transf (AST/SGOT) 26 U/L (0-35) Alanine Aminotransferase (ALT/SGPT) 37 U/L (0-56) Alkaline Phosphatase 64 U/L (0-126) Total Protein 6.5 g/dl (6.3-8.2) Albumin 4.0 g/dl (3.5-5.0) EKG/Imaging Imaging PATIENT NAME: Isabella Fountain : 1950 MR: [id number] V: [id number] EXAM DATE: ORDERING PHYSICIAN: EBONY MONTANO TECHNOLOGIST: Location: [facility] Patient: Isabella Fountain : 1950 Visit/Account:[id number] Date of Sevice: 11/07/2018 CHEST PA LAT Indication: RESP DISTRESS Comparison: Chest x-ray 10/09/2018. Findings: Lungs: Clear. Mediastinum/pulmonary vasculature: Heart size is normal. Large gastric hiatal hernia is seen. Bones/soft tissues: Normal. IMPRESSION: 1. Clear lungs. 2. Large gastric hiatal hernia. ED Course/Re-evaluation ED Course Patient is a 68-year-old female here with complaints of upper respiratory symptoms. Chest x-ray showed no acute findings. Influenza negative. There is no leukocytosis or electrolyte abnormalities on lab findings. Patient was given DuoNeb with improvement. Close PCP follow-up recommended. Return precautions provided. Decision to Disposition Date: Nov 07, 2018 Decision to Disposition Time: 12:39 Depart Departure Latest Vital Signs Vital Signs Date Time Temp Pulse Resp B/P (MAP) Pulse Ox O2 Delivery O2 Flow Rate FiO2 11/07/18 12:45 75 18 132/85 (101) 95 Nasal Cannula 1 11/07/18 10:51 98.4 Impression: Primary Impression: Viral illness Condition: Improved Disposition: HOME OR SELF-CARE Referrals: FAUSTO JOHNSON MD (PCP) Patient Instructions: Viral Syndrome (DC) Additional Instructions: Please drink plenty of water. You may take Tylenol or ibuprofen as needed for pain and fever control. Please return promptly with worsening symptoms. Please follow-up with your family doctor in the next 24-48 hours. EBONY MONTANO DO Nov 07, 2018 10:51
[2018-11-07] MEDS ORDERED: ALBUTEROL/IPRATROPIUM 3 ML NEB NEB SCH (11:05)
[2018-11-07 11:48] LABS: PLATELET COUNT, AUTOMATED 284 K/uL (150-450)
--- NOTE | 2018-11-07 12:36 | RADIOLOGY IMAGING REPORT ---
FACILITY: [facility] [place] PATIENT NAME: Isabella Fountain : 1950 MR: [id number] V: [id number] EXAM DATE: ORDERING PHYSICIAN: EBONY MONTANO TECHNOLOGIST: [place] [facility] [place]abella F[place] : 1950 Visit/Account:[id number] Date of Sevice: 11/07/2018 CHEST PA LAT Indication: RESP DISTRESS Comparison: Chest x-ray 10/09/2018. Findings: Lungs: Clear. Mediastinum/pulmonary vasculature: Heart size is normal. Large gastric hiatal hernia is seen. Bones/soft tissues: Normal. IMPRESSION: 1. Clear lungs. 2. Large gastric hiatal hernia. Report Dictated By: Donis Schroeder at 11/07/2018 12:12 PM Report E-Signed By: Donis Schroeder at 11/07/2018 12:32 PM WSN:[id number]
[2018-11-07 12:45] VITALS: BP 132/85
== END 2018-11-07 12:59 | disposition home or self-care (01) ==
LOC: ER 11:06
DX: B34.9 Viral infection, unspecified (principal)
CPT/HCPCS: 36415; 71046; 85025; 87502; 94640; 99283; J7620; 82040; 82247; 82310; 82374; 82435; 82565; 82947; 84075; 84132; 84155; 84295; 84450; 84460; 84520

== ENCOUNTER 2018-11-12 10:08 | Inpatient (IN) | payer MEDICARE, OTHER ==
[~2018-11-12] VITALS: Ht 162.6 cm; Wt 77.6 kg
[2018-11-12] VITALS (9 sets, daily range): BP systolic 117–138; BP diastolic 45–65
[~2018-11-12 10:08] MED LIST changes: -AZIT-1 PO
--- NOTE | 2018-11-12 11:43 | History & Physical - General ---
History of Present Illness Chief Complaint Fatigue, abdominal pain and nausea History of Present Illness This patient is a 68-year-old female who came in today for the follow-up of not feeling well patient was seen in the emergency room on 11/07/18 and was diagnosed with acute viral syndrome according to patient she continues to have nausea and complains of epigastric pain feels bloated appetite has decreased she denies any diarrhea she is more constipated she also mentioned that she had dark tarry stools 4 days ago but has not had bowel movements since then she feels very fatigued she is unable to walk and has been feeling lightheaded she denies any chest pain when she came into the office earlier today she was orthostatic with blood pressure of 118/67 and pulse of 73 lying down and blood pressure of 97/43 and pulse of 96 standing up. Stat labs were ordered and hemoglobin was 8.4 which has decreased from 10.6 on 11/07/18 Past medical history is pertinent that she has been having intermittent bleeding per rectum since 09/17/2018 which started after she was placed on Coumadin for atrial fibrillation. 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 she has been following up with neurology since then and is currently on gabapentin she does have numbness of the lower extremities Past medical history significant for depression and anxiety she has recently been placed on duloxetine and it is helping her neuropathy pain and depression both Past medical history significant for obstructive sleep apnea but she is not on any CPAP because she was not able to tolerate that in the past she has been referred for CPAP titration and has also been on mirtazapine to help with the sleeping History Problems: (1) Vitamin D deficiency Status: Chronic (2) Insomnia Status: Chronic (3) KING (obstructive sleep apnea) Status: Chronic (4) Lower extremity edema Status: Chronic (5) Large hiatal hernia Status: Chronic (6) Anxiety and depression (7) History of anemia Status: Acute (8) Peripheral neuropathy Status: Chronic (9) Hypoxia Status: Chronic (10) History of Guillain-Helm syndrome Status: Chronic (11) Atrial fibrillation Status: Chronic (12) Bleeding per rectum Status: Acute Home Meds Active Scripts Duloxetine Hcl (CYMBALTA) 60 Mg Capsule.dr, 60 MG PO QDAY, #90 CAP 2 Refills Prov:FAUSTO JOHNSON MD 10/27/18 Omeprazole (OMEPRAZOLE) 40 Mg Capsule.dr, 1 TAB PO QDAY for 30 Days, #30 CAP 0 Refills Prov:CLAUDIA STANLEY DNP, VERTICAL LATHE OPERATOR-BC 09/15/18 Warfarin Sodium (WARFARIN SODIUM) 5 Mg Tablet, 5 MG PO QDAY, #30 TAB 6 Refills Prov:FAUSTO JOHNSON MD 08/13/18 Mirtazapine (MIRTAZAPINE) 30 Mg Tablet, 30 MG PO QHS, #30 TAB 3 Refills Prov:FAUSTO JOHNSON MD 08/03/18 Reported Medications Warfarin Sodium (WARFARIN SODIUM) 5 Mg Tablet, 2.5 MG PO PP, TAB 10/09/18 Amiodarone Hcl (AMIODARONE HCL) Unknown Strength Tablet, 200 MG PO QDAY, TAB 09/15/18 Gabapentin (GABAPENTIN) 600 Mg Tablet, 600 MG PO QID 07/28/18 Discontinued Reported Medications Ibuprofen (IBUPROFEN) 200 Mg Tablet, 2 TAB PO PRN, TAB 11/02/18 Allergies: Coded Allergies: bupropion (Verified Allergy, Intermediate, 10/09/18) erythromycin base (Verified Allergy, Intermediate, 10/09/18) Patient History: Eczema BROTHER OR SISTER FH: COPD (chronic obstructive pulmonary disease) BROTHER OR SISTER FH: asthma BROTHER OR SISTER BROTHER OR SISTER Smoking Status: Current: Every Day Smoker, Light Tobacco Smoker Caffeine Intake: Coffee Caffeine/Cups Per Day: 1CPD Hx Alcohol Use: No Hx Substance Use Disorder: No Social Drug Use: Never Review of Systems ROS: Constitutional: Reports: Malaise, Weakness, Weight Loss; Denies: Fever, Chills ROS: Eyes: Denies: Eye Pain, Vision change, Eyelid inflammation ROS: HENT: Denies: Ear Drainage, Ear Pain, Ear Pressure ROS: Neurological: Denies Syncope; Reports Dizziness ROS: Respiratory: Reports Dyspnea; Denies SOB at Rest ROS: Cardiac: Denies Chest Pain at Rest ROS: Gastrointestinal: Reports Nausea, Reports Constipation, Reports Bloating, Reports Bloody Stools; Denies Vomiting, Denies Diarrhea ROS: Genitourinary: Denies Urinary Frequency, Denies Dyuria, Denies Hematuria ROS: Psych: Reports Depression, Reports Anxiety, Reports Insomnia; Denies Suicidal Ideation ROS: Endocrine: Denies Intolerence to Heat, Denies Intolerence to Cold Exam Constitutional: Well Nourished, Well Developed, No Distress Eyes: Right Conjunctiva Clear, Right Sclera Clear Neck: No Masses, Normal Thyroid Respiratory: CTA throughout, Even, Unlabored Cardiac: Regular Rate & Rhythm, No Gallop, No JVD, No Murmur, No Edema Inspection: Flat Percussion: All Quadrants Tympanic Palpation: Soft, Non-tender, No Guarding, No Hepatosplenomegaly Bowel Sounds: Active to all 4 Quadrants Female : No Suprapubic Tenderness Neurological: Alert & Oriented X3 Psych: Appropriate Mood and Affect Assessment and Plan Problems: (1) Dehydration Status: Acute Assessment & Plan: Patient appears to be dehydrated she has poor oral intake she needs IV fluids she has been admitted to the hospital and will be started on 0.9 normal saline with potassium She is also anemic and will be monitored for H&H she most likely had peptic ulcer disease (2) Anemia Status: Acute Assessment & Plan: Patient has evidence of iron deficiency anemia since it was improving but today her hemoglobin and hematocrit has decreased and is 8.4 and 36.2 I'm expecting that it will drop further after IV hydration and will plan to recheck CBC in 6 hours I will also type and screen 2 units of packed RBCs if needed, patient is going to have CT scan of the abdomen and pelvis Likely peptic ulcer and is going to start IV pantoprazole and will ask Dr. Hooks to see her for EGD Repeat labs showed hemoglobin of 7.6 and hematocrit of 24.9 plan is to transfuse 2 units of packed RBCs and recheck labs in the morning INR was 3.64 and I have given her vitamin K 1 mg IV/IM (3) Abdominal pain Status: Acute Assessment & Plan: Likely peptic ulcer disease patient is placed on pantoprazole I'm also ordering CT scan of the abdomen and pelvis (4) Bleeding per rectum Status: Acute Assessment & Plan: Likely source is peptic ulcer disease (5) Peptic ulcer disease Status: Acute Assessment & Plan: Relating her symptoms are related to bleeding peptic ulcer disease she was also using ibuprofen several times a day for last 1 week she has been placed on clear liquid diet and she has also been started on IV pantoprazole twice a day Dr. Hooks is on consult and may need to have EGD tomorrow (6) Atrial fibrillation Status: Chronic Assessment & Plan: Recently cardioverted about a month ago and is on warfarin which is on hold because of bleeding Patient is on amiodarone and will continue (7) Hypoxia Status: Chronic (8) Anxiety and depression (9) History of Guillain-Helm syndrome Status: Chronic Time Spent on Plan of Care: > 30 min Venous Thromboembolism VTE Risk Physician Assess for VTE Risk: Yes Patient's VTE Risk: Low VTE Diagnostic Test 2 Days Prior to Admit: No Antithrombotics Is Pt On Any Antithrombotics?: No Prophylaxis Tx Contraindicated Pharmacological Contraindicati: Active Bleeding Exam Sepsis Risk: No Definite Risk Problem Qualifiers (1) Anemia: Anemia type: iron deficiency Iron deficiency anemia type: chronic blood loss Qualified Codes: D50.0 - Iron deficiency anemia secondary to blood loss (chronic) (2) Abdominal pain: Abdominal location: epigastric Qualified Codes: R10.13 - Epigastric pain (3) Atrial fibrillation: Atrial fibrillation type: chronic Qualified Codes: I48.2 - Chronic atrial fibrillation FAUSTO JOHNSON MD Nov 12, 2018 11:43
[2018-11-12] MEDS: GABAPENTIN 300 MG CAP PO SCH ×3 (12:28→21:38)
[2018-11-12] MEDS: KCL/NS* 20 MEQ/1000 ML PREMIX 1,000 ML IV PRN (12:28)
[2018-11-12] MEDS: PANTOPRAZOLE SOD 40 MG IV VIAL IVP SCH ×2 (12:28→23:13)
[2018-11-12 12:42] LABS: PLATELET COUNT, AUTOMATED 328 K/uL (150-450)
[2018-11-12] MEDS ORDERED: NS(*) 0.9% 500 ML BAG 500 ML IV PRN (12:55)
[2018-11-12 14:21] LABS: INR 3.64
[2018-11-12] MEDS ORDERED: PHYTONADIONE 10 MG/ML AMP IM ONE (14:40)
--- NOTE | 2018-11-12 14:42 | EKG ---
FACILITY: [facility] PATIENT NAME: DAMION BOWDEN : [id number] MR: [id number] V: [id number] EXAM DATE: ORDERING PHYSICIAN: FAUSTO JOHNSON TECHNOLOGIST: Test Reason : afib Blood Pressure : / mmHG Vent. Rate : 068 BPM Atrial Rate : 068 BPM P-R Int : 228 ms QRS Dur : 090 ms QT Int : 362 ms P-R-T Axes : 054 -33 -03 degrees QTc Int : 384 ms Sinus rhythm with 1st degree AV block Left axis deviation Abnormal ECG When compared with ECG of 09-OCT-2018 12:34, Nonspecific T wave abnormality has replaced inverted T waves in Inferior leads T wave inversion no longer evident in Anterolateral leads QT has shortened Confirmed by FAUSTO JOHNSON ([id number]) on 11/12/2018 5:15:25 PM Referred By: Confirmed By:FAUSTO JOHNSON
--- NOTE | 2018-11-12 16:30 | General Surgery Consultation ---
History of Present Illness Requesting Physician dr. garnett Reason for Consult cvl placement, anemia Chief Complaint fatigue History of Present Illness 68 yo f with fatigue. dark stool 4 days ago but no bm since. nausea. anemia. nurses unable to place iv. History Home Meds Active Scripts Duloxetine Hcl (CYMBALTA) 60 Mg Capsule., 60 MG PO QDAY, #90 CAP 2 Refills Prov:FAUSTO GARNETT MD 10/27/18 Omeprazole (OMEPRAZOLE) 40 Mg Capsule., 1 TAB PO QDAY for 30 Days, #30 CAP 0 Refills Prov:CLAUDIA STANLEY DNP, ASSOCIATE SCIENTIST-BC 09/15/18 Warfarin Sodium (WARFARIN SODIUM) 5 Mg Tablet, 5 MG PO QDAY, #30 TAB 6 Refills Prov:FAUSTO GARNETT MD 08/13/18 Mirtazapine (MIRTAZAPINE) 30 Mg Tablet, 30 MG PO QHS, #30 TAB 3 Refills Prov:FAUSTO GARNETT MD 08/03/18 Reported Medications Warfarin Sodium (WARFARIN SODIUM) 5 Mg Tablet, 2.5 MG PO PP, TAB 10/09/18 Amiodarone Hcl (AMIODARONE HCL) Unknown Strength Tablet, 200 MG PO QDAY, TAB 09/15/18 Gabapentin (GABAPENTIN) 600 Mg Tablet, 600 MG PO QID 07/28/18 Discontinued Reported Medications Ibuprofen (IBUPROFEN) 200 Mg Tablet, 2 TAB PO PRN, TAB 11/02/18 Allergies: Coded Allergies: bupropion (Verified Allergy, Intermediate, 10/09/18) erythromycin base (Verified Allergy, Intermediate, 10/09/18) Family History: Eczema BROTHER OR SISTER FH: COPD (chronic obstructive pulmonary disease) BROTHER OR SISTER FH: asthma BROTHER OR SISTER BROTHER OR SISTER Review of Systems Constitutional: Other (per hpi) Exam Vital Signs Vital Signs Date Time Temp Pulse Resp B/P (MAP) Pulse Ox O2 Delivery O2 Flow Rate FiO2 11/12/18 15:06 98.3 70 16 125/50 (75) 92 Nasal Cannula 1.0 General Appearance: Alert, Awake, No Acute Distress Neuro: No Gross deficits Eyes: Other (per, eomi) ENT: Moist Mucous Membranes Cardiovascular: Other (reg rate) Respiratory: No Respiratory Distress GI: Other (abd soft) Integumentary: Skin Intact without Lesion / Mass Psych: Alert & Oriented X3, Appropriate Mood & Affect Medical Decision Making Data Points Result Diagram: 11/12/18 1232 Assessment and Plan Problems: (1) Anemia Status: Acute Assessment & Plan: 11/12/18: anemia, melena, needs iv access plan: cvl placement, poss egd tomorrow, transfuse as needed, ppi, hold anticoag Venous Thromboembolism Antithrombotics Is Pt On Any Antithrombotics?: Yes BERT DEAN Nov 12, 2018 16:30
--- NOTE | 2018-11-12 16:35 | Post Operative Progress Note ---
Post Operative Progress Note Date: Nov 12, 2018 Time: 16:31 Surgeon: dr. carolyn ramirez #[id number] Academy Director: none Anesthesia: local Pre-Op Diagnosis: anemia difficult iv access Post-Op Diagnosis: same Findings: normal anatomy Procedure(s): right fem cvl placement with US Complications: none Estimated Blood Loss: minimal Date OP Note Dictated: Nov 12, 2018 Time OP Note Dictated: 16:32 BERT RAMIREZ Nov 12, 2018 16:35
--- NOTE | 2018-11-12 19:58 | OPERATIVE REPORT 1 ---
EVENT DATE: November 12, 2018 SURGEON: Gianni Hooks MD ANESTHESIOLOGIST: Gianni Hooks MD ANESTHESIA: Local. CIRCULAR RIPSAW OPERATOR: None. PREOPERATIVE DIAGNOSES 1. Anemia. 2. Different intravenous access. POSTOPERATIVE DIAGNOSES 1. Anemia. 2. Different intravenous access. PROCEDURE PERFORMED Placement of right femoral central venous line with ultrasound guidance. ESTIMATED BLOOD LOSS Minimal. SPECIMENS None. COMPLICATIONS None. INDICATIONS This is a 68-year-old female with anemia and a drop in hemoglobin. Nurses are not able to obtain peripheral access. I will place a femoral central venous line. Patient has an elevated INR. Risks and benefits of the procedure were explained. Consent was signed. DESCRIPTION OF PROCEDURE The procedure was performed in the patient's room on the Med/Surg Floor. Patient was prepped and draped in a sterile fashion. Local analgesia was injected into the dermis. A Cook needle was easily advanced into the right femoral vein under ultrasound guidance. Dark red, nonpulsatile blood was returned. The guidewire was easily advanced. Cook needle was removed. Small incision was made at the entry site of the guidewire. Dilator was advanced over the guidewire. The triple-lumen, 20 cm catheter was then advanced over the guidewire. Guidewire was removed. All lumens aspirated and flushed easily. Catheter was secured in place with silk stitches. Appropriate dressings were applied. Patient tolerated the procedure well. There were no complications. [facility]
[2018-11-12] MEDS ORDERED: MIRTAZAPINE 30 MG TAB 30 MG TAB PO SCH (21:00)
[2018-11-13 02:48] VITALS: BP 105/54
[2018-11-13] MEDS: KCL/NS* 20 MEQ/1000 ML PREMIX 1,000 ML IV PRN (05:53)
[2018-11-13 06:14] LABS: PLATELET COUNT, AUTOMATED 280 K/uL (150-450)
[2018-11-13 06:22] LABS: INR 2.39
[2018-11-13 06:53] VITALS: BP 124/60
[2018-11-13 07:39] VITALS: BP 143/67
[2018-11-13] MEDS ORDERED: IOPAMIDOL 61% 50 ML INFUS BTL 50 ML ONE (08:24)
[2018-11-13 08:57] VITALS: Ht 162.6 cm; Wt 77.6 kg
[2018-11-13] MEDS ORDERED: DULoxetine HCL 30 MG CAPCR PO SCH (09:00)
[2018-11-13] MEDS ORDERED: AMIODARONE 200 MG TAB PO SCH (09:00)
[2018-11-13] MEDS: GABAPENTIN 300 MG CAP PO SCH ×2 (09:39→12:59)
[2018-11-13] MEDS: PANTOPRAZOLE SOD 40 MG IV VIAL IVP SCH (09:40)
--- NOTE | 2018-11-13 10:31 | RADIOLOGY IMAGING REPORT ---
FACILITY: [facility] - [place] PATIENT NAME: Isabella Fountain : 1950 MR: [id number] V: [id number] EXAM DATE: ORDERING PHYSICIAN: FAUSTO JOHNSON TECHNOLOGIST: Location: [facility] - [place] Patient: Isabella Fountain : 1950 Visit/Account:[id number] Date of Sevice: 11/12/2018 CT scan of the abdomen and pelvis without and with contrast. HISTORY: GI bleed. COMPARISON: None. 1 mm thick and [address] images were obtained of the abdomen and pelvis using 90 mL intrave nous Isovue 300. No oral contrast. One of the following dose optimization techniques was utilized i n the performance of this exam: Automated exposure control; adjustment of the mA and/or kV according to the patient's size; or use of an iterative reconstruction technique. Specific details can be ref erenced in the facility's radiology CT exam operational policy. FINDINGS: Moderate consolidation is present in the right lung base. Mild consolidation is present in the left lung base. A moderate-sized direct hiatal hernia is present. The mitral valve annulus is partially calcified. The heart size is upper limits of normal. The liver and spleen are normal in size. A small amount of dense material is present in the gallblad ken. Small low-density areas are present in the liver probably representing unopacified bile ducts. The portal vein is patent. The pancreas is normal in size. The kidneys and adrenal glands are norm al in size. No hydronephrosis. The ureters are not well visualized. The abdominal aorta and iliac arteries are calcified. A right femoral central venous catheter terminates in the right common iliac vein. The uterus is abs ent. Phleboliths are present in the true pelvis. The ovaries are not visualized. A 2.9 cm well mar ginated oval-shaped mass is present in the right adnexa, possibly arising from the right ovary. Mode rate amounts of gas and stool are present in the colon and rectum. Portions of the sigmoid colon are incompletely distended. Unopacified bowel loops are scattered in the abdomen and pelvis. The appen boris is not well-visualized. Degenerative changes are present in the spine. No bulky abdominal or pe lvic adenopathy. IMPRESSION: Moderate right basilar lung consolidation. Mild left basilar lung consolidation. Moderate hiatal hernia. Probable cholelithiasis. Atherosclerosis. Absent uterus. 2.9 cm right adnexal mass. If the patient still has ovaries, this may represent an ovarian cyst or m ass. Other etiologies are also possible. Clinical correlation is suggested. Incompletely distended sigmoid colon. COMMENT: The source of GI bleeding is not identified by this means. Report Dictated By: David Pulido MD at 11/13/2018 10:11 AM Report E-Signed By: David Pulido MD at 11/13/2018 10:26 AM WSN:[email or web address]
[2018-11-13] MEDS ORDERED: AZITHROMYCIN 250 MG TAB PO ONE (11:40)
--- NOTE | 2018-11-13 11:59 | General Surgery Progress Note ---
Subjective Progress Notes Subjective feeling better. no bm. Physical Exam Vital Signs Date Time Temp Pulse Resp B/P (MAP) Pulse Ox O2 Delivery O2 Flow Rate FiO2 11/13/18 07:45 98 Nasal Cannula 2.0 11/13/18 07:39 98.2 64 16 143/67 (92) Intake and Output 11/13/18 07:00 Intake Total 2000 ml Balance 2000 ml Intake Oral 0 ml IV Total 1000 ml Blood Product 1000 ml # Voids 2 General Appearance: No Acute Distress Cardiovascular: Other (reg rate) GI: Other (soft) Result Diagram: 11/13/1853011/13/18530 Assessment and Plan Problems: (1) Anemia Status: Acute Assessment & Plan: 11/12/18: anemia, melena, needs iv access plan: cvl placement, poss egd tomorrow, transfuse as needed, ppi, hold anticoag. 11/13/18: feeling better. hb 9.2. inr 2.4. ppi. hold anticoag. egd/colonoscopy 11/17/18. Exam Sepsis Risk: No Definite Risk Problem Qualifiers (1) Anemia: Anemia type: iron deficiency Iron deficiency anemia type: chronic blood loss Qualified Codes: D50.0 - Iron deficiency anemia secondary to blood loss (chronic) BERT DEAN Nov 13, 2018 11:58
[2018-11-13 12:00] LABS: PLATELET COUNT, AUTOMATED 312 K/uL (150-450)
--- NOTE | 2018-11-13 12:13 | Antimicrobial Stewardship ---
Antimicrobial Time Out Antimicrobial Stewardship MD Service: Other ([place]) Indications: CAP Antimicrobial Used Zithromax 500 mg po times one and he will send home with rx for remainder of Zithromax. Culture Results: N/A JEREMY MEDINA Nov 13, 2018 12:13
[2018-11-13 12:15] VITALS: BP 132/62
--- NOTE | 2018-11-13 13:25 | Hospitalist Depart ---
Discharge Summary Reason for Hosp/Final Diag: (1) Dehydration Status: Acute Hospital Course & Plan: Patient appears to be dehydrated she has poor oral intake she needs IV fluids she has been admitted to the hospital and will be started on 0.9 normal saline with potassium She is also anemic and will be monitored for H&H she most likely had peptic ulcer disease 11/13/18 patient is doing better since she was admitted to the hospital she has no blood in the stools the last time it occurred was 5 days ago her hemoglobin and hematocrit was 9.2/28.7 earlier this morning and at 12 no and it was 9.9/31.2 patient is able to tolerate soft diet without any problems and is drinking fluids without any problems CT scan of the abdomen and pelvis that was done has been reviewed and it did show consolidation in the right lung base and mild in the left lung base she has been placed on Z-Clyde although she does not have any fever or chills or elevated white count CT scan has also shown a 2.9 cm right adnexal mass and will need to refer her to [facility]AGE NURSE for that Patient has been advised to hold warfarin until she is seen by me or after colonoscopy/EGD which is scheduled for 11/17/18 (2) Anemia Status: Acute Hospital Course & Plan: Patient has evidence of iron deficiency anemia since it was improving but today her hemoglobin and hematocrit has decreased and is 8.4 and 36.2 I'm expecting that it will drop further after IV hydration and will plan to recheck CBC in 6 hours I will also type and screen 2 units of packed RBCs if needed, patient is going to have CT scan of the abdomen and pelvis Likely peptic ulcer and is going to start IV pantoprazole and will ask Dr. Hooks to see her for EGD Repeat labs showed hemoglobin of 7.6 and hematocrit of 24.9 plan is to transfuse 2 units of packed RBCs and recheck labs in the morning INR was 3.64 and I have given her vitamin K 1 mg IV/IM 11/13/18 labs reviewed INR has improved to 2.39 no evidence of bleeding hemoglobin and hematocrit is stable after 2 units of packed RBCs (3) Abdominal pain Status: Acute Hospital Course & Plan: Likely peptic ulcer disease patient is placed on pantoprazole I'm also ordering CT scan of the abdomen and pelvis 11/13/18 CT scan of the abdomen and pelvis have been reviewed no obvious source o f bleeding noted it did show right adnexal mass for which she will be referred to TRIAGE NURSE next Patient is scheduled for EGD and colonoscopy on 11/17/18 she will continue to hold Coumadin until then (4) Bleeding per rectum Status: Acute Hospital Course & Plan: Likely source is peptic ulcer disease scheduled for EGD and colonoscopy on 11/17/18 and will continue to hold Coumadin until then patient has been advised on no aspirin or ibuprofen (5) Peptic ulcer disease Status: Acute Hospital Course & Plan: Relating her symptoms are related to bleeding peptic ulcer disease she was also using ibuprofen several times a day for last 1 week she has been placed on clear liquid diet and she has also been started on IV pantoprazole twice a day Dr. Hooks is on consult and may need to have EGD tomorrow (6) Atrial fibrillation Status: Chronic Hospital Course & Plan: Recently cardioverted about a month ago and is on warfarin which is on hold because of bleeding Patient is on amiodarone and will continue 11/13/18 INR today is 2.39 her warfarin is on hold and I plan to restart after her colonoscopy on 11/17/18 (7) Hypoxia Status: Chronic Hospital Course & Plan: Also has history of obstructive sleep apnea and is awaiting to have a repeat sleep study a chest CT scan has shown consolidation and has been placed on Z-Clyde for 5 days (8) Anxiety and depression (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 (10) Adnexal mass Hospital Course & Plan: Found to have right adnexal mass on CT scan she will be referred to TRIAGE NURSE (11) Pneumonia Status: Acute Hospital Course & Plan: I suspect it is viral pneumonitis but I'm placing her on Zithromax Departure Weight (Pounds): 171 Result Diagram: 11/13/18 1153 11/13/18 0531 Item Value Date Time Hemoglobin 7.6 g/dL *L 11/12/18 1232 Hematocrit 24.9 % *L 11/12/18 1232 Hemoglobin 9.2 g/dL L 11/13/18 0531 Hematocrit 28.7 % L 11/13/18 0531 Hemoglobin 9.9 g/dL L 11/13/18 1153 Hematocrit 31.2 % L 11/13/18 1153 Imaging Location: [facility] - [place] Patient: Isabella Fountain : 1950 Visit/Account:[id number] Date of : 11/12/2018 CT scan of the abdomen and pelvis without and with contrast. HISTORY: GI bleed. COMPARISON: None. 1 mm thick and [address] images were obtained of the abdomen and pelvis using 90 mL intravenous Isovue 300. No oral contrast. One of the following dose optimization techniques was utilized in the performance of this exam: Automated exposure control; adjustment of the mA and/or kV according to the patient's size; or use of an iterative reconstruction technique. Specific details can be referenced in the facility's radiology CT exam operational tila cy. FINDINGS: Moderate consolidation is present in the right lung base. Mild consolidation is present in the left lung base. A moderate-sized direct hiatal hernia is present. The mitral valve annulus is partially calcified. The heart size is upper limits of normal. The liver and spleen are normal in size. A small amount of dense material is present in the gallbladder. Small low-density areas are present in the liver probably representing unopacified bile ducts. The portal vein is patent. The pancreas is normal in size. The kidneys and adrenal glands are normal in size. No hydronephrosis. The ureters are not well visualized. The abdominal aorta and iliac arteries are calcified. A right femoral central venous catheter terminates in the right common iliac vein. The uterus is absent. Phleboliths are present in the true pelvis. The ovaries are not visualized. A 2.9 cm well marginated oval-shaped mass is present in the right adnexa, possibly arising from the right ovary. Moderate amounts of gas and stool are present in the colon and rectum. Portions of the sigmoid colon are incompletely distended. Unopacified bowel loops are scattered in the abdomen and pelvis. The appendix is not well-visualized. Degenerative changes are present in the spine. No bulky abdominal or pelvic adenopathy. IMPRESSION: Moderate right basilar lung consolidation. Mild left basilar lung consolidation. Moderate hiatal hernia. Probable cholelithiasis. Atherosclerosis. Absent uterus. 2.9 cm right adnexal mass. If the patient still has ovaries, this may represent an ovarian cyst or mass. Other etiologies are also possible. Clinical correlation is suggested. Incompletely distended sigmoid colon. COMMENT: The source of GI bleeding is not identified by this means. Report Dictated By: David Pulido MD at 11/13/2018 10:11 AM Report E-Signed By: David Pulido MD at 11/13/2018 10:26 AM WSN:[email or web address] Condition: Improved Discharge: Home Time Spent: < 30 min Discharge Instructions Home Meds Active Scripts Azithromycin (ZITHROMAX) 250 Mg Tablet, 1 TAB PO QDAY, #4 TAB Prov:FAUSTO BENTLEY MD 11/13/18 Duloxetine Hcl (CYMBALTA) 60 Mg Capsule., 60 MG PO QDAY, #90 CAP 2 Refills Prov:FAUSTO BENTLEY MD 10/27/18 Omeprazole (OMEPRAZOLE) 40 Mg Capsule., 1 TAB PO QDAY for 30 Days, #30 CAP 0 Refills Prov:CLAUDIA STANLEY DNP, MANAGER OF PROCUREMENT-BC 09/15/18 Mirtazapine (MIRTAZAPINE) 30 Mg Tablet, 30 MG PO QHS, #30 TAB 3 Refills Prov:FAUSTO BENTLEY MD 08/03/18 Reported Medications Amiodarone Hcl (AMIODARONE HCL) Unknown Strength Tablet, 200 MG PO QDAY, TAB 09/15/18 Gabapentin (GABAPENTIN) 600 Mg Tablet, 600 MG PO QID 07/28/18 Discontinued Reported Medications Warfarin Sodium (WARFARIN SODIUM) 5 Mg Tablet, 2.5 MG PO PP, TAB 10/09/18 Ibuprofen (IBUPROFEN) 200 Mg Tablet, 2 TAB PO PRN, TAB 11/02/18 Discontinued Scripts Warfarin Sodium (WARFARIN SODIUM) 5 Mg Tablet, 5 MG PO QDAY, #30 TAB 6 Refills Prov:FAUSTO BENTLEY MD 08/13/18 Diet: Regular Activity: As Tolerated Special Instructions: Do not take Coumadin until EGD/colonoscopy on Dr. Bentley's office will make arrangements for her to see TRIAGE NURSE doctor regarding right adnexal mass Follow-up with Dr. Bentley after the colonoscopy on 11/17/18 Venous Thromboembolism Antithrombotics Is Pt On Any Antithrombotics?: No Problem Qualifiers (1) Anemia: Anemia type: iron deficiency Iron deficiency anemia type: chronic blood loss Qualified Codes: D50.0 - Iron deficiency anemia secondary to blood loss (chronic) (2) Abdominal pain: Abdominal location: epigastric Qualified Codes: R10.13 - Epigastric pain (3) Atrial fibrillation: Atrial fibrillation type: chronic Qualified Codes: I48.2 - Chronic atrial fibrillation FAUSTO BENTLEY MD Nov 13, 2018 13:25
[2018-11-13] MEDS ORDERED: AZIT-1 PO ×2 (13:26→13:28)
[2018-11-13 18:32] VITALS: BP 124/87
== END 2018-11-13 14:30 | disposition home or self-care (01) | DRG 811 ==
LOC: MED 10:08
PROVIDERS: ADMIT Internal Medicine; ATTEND Internal Medicine
PROC: 06HM33Z Insertion of Infusion Device into Right Femoral Vein, Percutaneous Approach (ICD-10-PCS; principal; 2018-11-12)
PROC: B54BZZA Ultrasonography of Right Lower Extremity Veins, Guidance (ICD-10-PCS; 2018-11-12)
PROC: 30243N1 Transfusion of Nonautologous Red Blood Cells into Central Vein, Percutaneous Approach (ICD-10-PCS; 2018-11-12)
DX: D50.0 Iron deficiency anemia secondary to blood loss (chronic) (principal); J12.9 Viral pneumonia, unspecified; K27.3 Acute peptic ulcer, site unspecified, without hemorrhage or perforation; K92.1 Melena; G61.0 Guillain-Barre syndrome; E86.0 Dehydration; I48.2 Chronic atrial fibrillation; R09.02 Hypoxemia; F41.8 Other specified anxiety disorders; G47.33 Obstructive sleep apnea (adult) (pediatric); G47.00 Insomnia, unspecified; K44.9 Diaphragmatic hernia without obstruction or gangrene; G62.9 Polyneuropathy, unspecified; Z79.01 Long term (current) use of anticoagulants; Z99.81 Dependence on supplemental oxygen; Z88.8 Allergy status to other drugs, medicaments and biological substances
CPT/HCPCS: 36415; 74178; 81001; 82040; 82247; 82310; 82374; 82435; 82565; 82947; 83880; 84075; 84132; 84155; 84295; 84450; 84460; 84484; 84520; 85025; 85610; 85730; 86850; 86900; 86901; 86920; 93005; C9113; J3430; J3480; P9016; Q9967

== ENCOUNTER → 2018-11-12 | Outpatient (CLI) | payer MEDICARE, OTHER ==
[~2018-11-12] MED LIST changes: +AZIT-1 PO
[2018-11-12 09:34] LABS: PLATELET COUNT, AUTOMATED 362 K/uL (150-450)
== END ==
LOC: LAB 09:17
PROVIDERS: ATTEND Internal Medicine
DX: D64.9 Anemia, unspecified (principal); R10.9 Unspecified abdominal pain; I48.91 Unspecified atrial fibrillation
CPT/HCPCS: 36415; 82040; 82150; 82247; 82310; 82374; 82435; 82565; 82607; 82728; 82746; 82947; 83540; 83550; 83690; 84075; 84132; 84155; 84295; 84443; 84450; 84460; 84520; 85025

== ENCOUNTER 2018-11-17 00:08 | Day surgery (SDC) | payer MEDICARE, OTHER ==
[2018-11-13 08:57] VITALS: Ht 162.6 cm; Wt 78.9 kg
[2018-11-17] VITALS (8 sets, daily range): BP systolic 91–124; BP diastolic 42–65
[~2018-11-17] VITALS: Ht 162.6 cm; Wt 78.9 kg
[~2018-11-17 00:08] MED LIST changes: +AZIT-1 PO; +LIDOCAINE/SOD BICARB 8.4% SYR ID ONE; +NORMOSOL R SOLN(*) 1000 ML BAG 1,000 ML IV PRN
[2018-11-17] MEDS ORDERED: PROPOFOL EMUL(*) 10MG/ML 20 ML 40 ML ONE (10:08)
[2018-11-17] MEDS ORDERED: NORMOSOL R SOLN(*) 1000 ML BAG 1,000 ML IV PRN (10:35)
[2018-11-17] MEDS ORDERED: LIDOCAINE/SOD BICARB 8.4% SYR ID ONE (10:35)
[2018-11-17] MEDS ORDERED: PROPOFOL EMUL(*) 10MG/ML 20 ML 20 ML ONE ×2 (11:50→12:09)
--- NOTE | 2018-11-17 12:30 | Short(Outpt) Discharge Summary ---
Discharge Summary Reason for Hosp/Final Diag: (1) Anemia Status: Acute Hospital Course & Plan: pt presented for egd and colonoscopy. she tolerated the procedures well. path pending. she will be discharged home when criteria met. Departure Discharge to: Home Discharge Instructions Home Meds Active Scripts Azithromycin (ZITHROMAX) 250 Mg Tablet, 1 TAB PO QDAY, #4 TAB Prov:FAUSTO JOHNSON MD 11/13/18 Duloxetine Hcl (CYMBALTA) 60 Mg Capsule.dr, 60 MG PO QDAY, #90 CAP 2 Refills Prov:FAUSTO JOHNSON MD 10/27/18 Omeprazole (OMEPRAZOLE) 40 Mg Capsule.dr, 1 TAB PO QDAY for 30 Days, #30 CAP 0 Refills Prov:CLAUDIA STANLEY DNP, TIMBER HARVESTER OPERATOR-BC 09/15/18 Mirtazapine (MIRTAZAPINE) 30 Mg Tablet, 30 MG PO QHS, #30 TAB 3 Refills Prov:FAUSTO JOHNSON MD 08/03/18 Reported Medications Amiodarone Hcl (AMIODARONE HCL) Unknown Strength Tablet, 200 MG PO QDAY, TAB 09/15/18 Gabapentin (GABAPENTIN) 600 Mg Tablet, 600 MG PO QID 07/28/18 Discontinued Reported Medications Warfarin Sodium (WARFARIN SODIUM) 5 Mg Tablet, 2.5 MG PO PP, TAB 10/09/18 Ibuprofen (IBUPROFEN) 200 Mg Tablet, 2 TAB PO PRN, TAB 11/02/18 Discontinued Scripts Warfarin Sodium (WARFARIN SODIUM) 5 Mg Tablet, 5 MG PO QDAY, #30 TAB 6 Refills Prov:FAUSTO JOHNSON MD 08/13/18 Diet: Regular Activity: As Tolerated Special Instructions: we will call you in 10 days with biopsy results. ok to restart coumadin tomorrow. BERT DEAN Nov 17, 2018 12:30
[2018-11-18] MEDS ORDERED: OMEP40CA48 PO (11:17)
[2018-11-18] MEDS ORDERED: WARF5TAB23 PO (11:17)
== END 2018-11-17 13:45 | disposition home or self-care (01) ==
LOC: OR 00:08
PROVIDERS: ATTEND Surgery
DX: Q27.33 Arteriovenous malformation of digestive system vessel (principal)
CPT/HCPCS: 00813; 43239; 45382; 87077; 88305; 88344; J2704

== ENCOUNTER → 2018-11-26 | Outpatient (CLI) | payer MEDICARE, OTHER ==
[2018-11-13 08:57] VITALS: BMI 29.4
[~2018-11-26] MED LIST changes: -LIDOCAINE/SOD BICARB 8.4% SYR ID ONE; -NORMOSOL R SOLN(*) 1000 ML BAG 1,000 ML IV PRN
== END ==
LOC: LAB 13:54
PROVIDERS: ATTEND Student in an Organized Health Care Education/Training Program
DX: N94.9 Unspecified condition associated with female genital organs and menstrual cycle (principal)
CPT/HCPCS: 86304

== ENCOUNTER → 2018-11-26 | Outpatient (CLI) | payer MEDICARE, OTHER ==
[2018-11-13 08:57] VITALS: BMI 29.4
[2018-11-26 14:39] LABS: PLATELET COUNT, AUTOMATED 380 K/uL (150-450)
[2018-11-26 14:53] LABS: INR 1.77
== END ==
LOC: LAB 13:56
PROVIDERS: ATTEND Internal Medicine
DX: D64.9 Anemia, unspecified (principal); I48.91 Unspecified atrial fibrillation; K27.9 Peptic ulcer, site unspecified, unspecified as acute or chronic, without hemorrhage or perforation; K62.5 Hemorrhage of anus and rectum
CPT/HCPCS: 36415; 82040; 82247; 82310; 82374; 82435; 82565; 82728; 82947; 83540; 83550; 84075; 84132; 84155; 84295; 84450; 84460; 84520; 85025; 85610

== ENCOUNTER → 2018-12-03 | Outpatient (CLI) | payer MEDICARE, OTHER ==
[2018-11-13 08:57] VITALS: BMI 29.4
[2018-12-03 14:17] LABS: INR 3.16
== END ==
LOC: LAB 13:34
PROVIDERS: ATTEND Internal Medicine
DX: Z51.81 Encounter for therapeutic drug level monitoring (principal); I48.1 Persistent atrial fibrillation; Z79.01 Long term (current) use of anticoagulants
CPT/HCPCS: 36415; 85610

== ENCOUNTER → 2018-12-10 | Outpatient (CLI) | payer MEDICARE, OTHER ==
[2018-11-13 08:57] VITALS: BMI 29.4
[2018-12-10 14:19] LABS: INR 2.72
== END ==
LOC: LAB 13:47
PROVIDERS: ATTEND Internal Medicine
DX: Z51.81 Encounter for therapeutic drug level monitoring (principal); I48.1 Persistent atrial fibrillation; Z79.01 Long term (current) use of anticoagulants
CPT/HCPCS: 36415; 85610

== ENCOUNTER → 2019-01-01 | Outpatient (CLI) | payer MEDICARE, OTHER ==
[2018-11-13 08:57] VITALS: BMI 29.4
[2019-01-01 13:37] LABS: INR 2.77
== END ==
LOC: LAB 13:20
PROVIDERS: ATTEND Internal Medicine
DX: Z51.81 Encounter for therapeutic drug level monitoring (principal); Z79.01 Long term (current) use of anticoagulants; I48.1 Persistent atrial fibrillation
CPT/HCPCS: 36415; 85610

== ENCOUNTER → 2019-01-06 | Outpatient (CLI) | payer MEDICARE, OTHER ==
[2018-11-13 08:57] VITALS: BMI 29.4
[~2019-01-06] MED LIST changes: +FERR-53 PO
[2019-01-06 15:49] LABS: PLATELET COUNT, AUTOMATED 384 K/uL (150-450)
[2019-01-06 16:00] LABS: INR 3.51
--- NOTE | 2019-01-06 16:44 | RADIOLOGY IMAGING REPORT ---
FACILITY: [facility] PATIENT NAME: Isabella Fountain : 1950 MR: [id number] V: [id number] EXAM DATE: ORDERING PHYSICIAN: FAUSTO JOHNSON TECHNOLOGIST: Location: [facility] - [place], [place] Patient: Isabella Fountain : 1950 Visit/Account:[id number] Date of Sevice: 01/06/2019 FOOT 3 VIEWS RIGHT Given history: rt foot/ 5th toe pain Additional history: History of bunion removal in the same toe COMPARISON STUDIES: NONE FINDINGS: Osseous structures: There is deformity of the distal shaft of the fifth metatarsal which demonstrat es mild angulation. The appearance more suggestive of old healed fracture and I believe less likely to be related to the reported prior bunionectomy unless the bone was fractured at the time of that pr ocedure. No acute fractures are seen and osseous structures of the right foot appear otherwise unrem arkable. Joints: normal . Soft tissues: normal . IMPRESSION: Mildly angulated deformity of the distal fifth metatarsal as discussed above likely related to heal ed fracture Report Dictated By: Alfredo Cunningham MD at 01/06/2019 4:29 PM Report E-Signed By: Alfredo Cunningham MD at 01/06/2019 4:39 PM WSN:[id number]
--- NOTE | 2019-01-06 17:47 | EKG ---
FACILITY: [facility] PATIENT NAME: DAMION BOWDEN : [id number] MR: [id number] V: [id number] EXAM DATE: ORDERING PHYSICIAN: FAUSTO JOHNSON TECHNOLOGIST: ASHLEE Test Reason : PRE-OP Blood Pressure : / mmHG Vent. Rate : 060 BPM Atrial Rate : 060 BPM P-R Int : 210 ms QRS Dur : 094 ms QT Int : 476 ms P-R-T Axes : 059 -39 018 degrees QTc Int : 476 ms Sinus rhythm with 1st degree AV block Left axis deviation Abnormal ECG When compared with ECG of 12-NOV-2018 14:00, Nonspecific T wave abnormality no longer evident in Lateral leads QT has lengthened Confirmed by FAUSTO JOHNSON ([id number]) on 01/07/2019 1:34:39 PM Referred By: MEGAN Confirmed By:FAUSTO JOHNSON
== END ==
LOC: LAB 15:15
PROVIDERS: ATTEND Internal Medicine
DX: M79.674 Pain in right toe(s) (principal)
CPT/HCPCS: 36415; 82040; 82247; 82310; 82374; 82435; 82565; 82728; 82947; 83540; 83550; 84075; 84132; 84155; 84295; 84450; 84460; 84520; 85025; 85610

== ENCOUNTER 2019-01-12 00:44 | Observation (INO) | payer MEDICARE, OTHER ==
[2018-11-13 08:57] VITALS: Ht 162.6 cm; Wt 76.7 kg
[2019-01-12] VITALS (14 sets, daily range): BP systolic 115–167; BP diastolic 64–102
[~2019-01-12] VITALS: Ht 162.6 cm; Wt 76.7 kg
[~2019-01-12 00:44] MED LIST changes: +LIDOCAINE/SOD BICARB 8.4% SYR ID ONE
[2019-01-12] MEDS ORDERED: ceFAZolin(*) 2GM/D5W 50ML 50 ML IVPB ONE (07:10)
[2019-01-12] MEDS ORDERED: BUPIVACAINE 0.5% INJ 50ML VIAL INFIL ONE (07:24)
[2019-01-12] MEDS: NORMOSOL R SOLN(*) 1000 ML BAG 1,000 ML IV PRN ×2 (07:39→12:04)
[2019-01-12] MEDS ORDERED: PROPOFOL EMUL(*) 10MG/ML 20 ML 20 ML ONE (07:40)
[2019-01-12] MEDS ORDERED: LIDOCAINE MPF 1% 5 ML VIAL ONE (07:40)
[2019-01-12] MEDS ORDERED: ONDANSETRON 4 MG/2 ML VIAL ONE (07:40)
[2019-01-12] MEDS ORDERED: DEXAMETHASONE SOD PHOS 10MG/ML ONE (07:40)
[2019-01-12] MEDS ORDERED: fentaNYL CITR 100 MCG/2 ML AMP ONE ×2 (07:41→11:55)
[2019-01-12] MEDS ORDERED: FAMOTIDINE 20 MG TAB PO ONE (07:50)
[2019-01-12] MEDS ORDERED: GABAPENTIN 300 MG CAP PO ONE (07:50)
[2019-01-12] MEDS ORDERED: KETAMINE HCL-NS 50 MG/5 ML SYR ONE (07:57)
[2019-01-12] MEDS ORDERED: MIDAZOLAM 2 MG/2 ML VIAL IVP PRN (08:00)
[2019-01-12] MEDS ORDERED: NS(*) 0.9% 500 ML BAG 500 ML ONE (08:01)
[2019-01-12 08:16] LABS: INR 1.05
[2019-01-12] MEDS ORDERED: BUPIVACAINE/EPI 0.5% 50ML VIAL INFIL ONE (08:26)
[2019-01-12] MEDS ORDERED: ROCURONIUM BROM 10 MG/ML 5 ML ONE (08:44)
[2019-01-12] MEDS ORDERED: ePHEDrine 25 MG/5 ML DISP.SYR IVP ONE (09:36)
[2019-01-12] MEDS ORDERED: SUGAMMADEX SOD 200 MG/2 ML SDV ONE (09:50)
[2019-01-12] MEDS ORDERED: ONDANSETRON 4 MG/2 ML VIAL IVP PRN (12:15)
[2019-01-12] MEDS ORDERED: HYDROmorphone HCL 2 MG/ML SDV IVP PRN (12:15)
[2019-01-12] MEDS ORDERED: PROMETHAZINE 25 MG/ML 1 ML AMP IVP PRN (12:15)
--- NOTE | 2019-01-12 12:19 | Post Operative Progress Note ---
Post Operative Progress Note Date: Jan 12, 2019 Time: 12:17 Surgeon: dr. merlyn ramirez Colorer: dr. antwon combs Anesthesia: gen, local dr. dawson Pre-Op Diagnosis: hiatal hernia Post-Op Diagnosis: same Findings: large hiatal hernia Procedure(s): lap hiatal hernia repair and toupet fundoplication Complications: none Fluids: iv crystalloid Estimated Blood Loss: minimal BERT RAMIREZ Jan 12, 2019 12:19
[2019-01-12] MEDS ORDERED: NS(*) 0.9% 1000 ML BAG 1,000 ML IV SCH (12:25)
--- NOTE | 2019-01-12 13:48 | OPERATIVE REPORT 1 ---
EVENT DATE: January 12, 2019 SURGEON: Gianni Hooks MD ANESTHESIOLOGIST: Kirt Damon MD ANESTHESIA: General and local. FOOT AND ANKLE SURGEON: Juliocesar Gan MD PREOPERATIVE DIAGNOSIS Large hiatal hernia. POSTOPERATIVE DIAGNOSIS Large hiatal hernia. PROCEDURE PERFORMED Laparoscopic hiatal hernia repair and Toupet fundoplication. FLUIDS IV crystalloid. ESTIMATED BLOOD LOSS Minimal. SPECIMENS None. COMPLICATIONS None. INDICATIONS This is a 68-year old female with discomfort in her chest. She constantly feels like food is sitting in her chest. EGD revealed a large hiatal hernia. On physical exam, patient was stable. Her abdomen were soft. Risks and benefits of the procedure were explained and consent was signed. DESCRIPTION OF PROCEDURE The patient was taken to the operating room and placed in the supine position. General anesthesia was administered per the Anesthesia team. The patient was prepped and draped in normal sterile fashion. Local anesthesia was injected into the dermis below the left costal margin and a small incision was made. OptiView technique was used to easily enter the abdomen. Pneumoperitoneum was achieved. Another 5 mm port was placed just above and to the left of the umbilicus followed by a 12 mm port just above and to the right of the umbilicus and a right subcostal 5 mm port, all after injecting local analgesia under direct vision. A small incision was made below the xiphoid process. This is where the Landen liver retractor was placed. The abdomen was inspected. There was no injury upon entry. The patient had a large portion of her stomach through the hiatal hernia defect. The stomach was gently pulled back through the hernia defect. The lesser omentum was divided and this was carried up over the right amanda. The short gastrics were divided along the superior half of the greater curvature and this carried up over the left amanda. The hernia sac was reduced. This involved a large amount of careful dissection in the mediastinum. Dissection continued posteriorly as well. Care was taken to protect the vagus nerves. The hernia sac was divided and removed from the abdomen. I had at least 2.5 cm of esophagus in the abdomen under no tension. The hernia defect was approximated with [id number] 0 Surgidac stitches with the endo-stitch device. Most of these were placed posteriorly and one stitch was placed anteriorly. Care was taken to leave enough room for the esophagus to easily pass and expand as needed. A Toupet fundoplication was then performed using 2-0 silk stitches x3 on each side. The stitches secured the fundus to the esophagus on each side. A silk suture was also used to secure the wrap to the right crura posteriorly and anteriorly to the left crura. The wrap was under no tension. It was appropriately oriented. Care was taken to not involve the nerves in the stitches of the wrap. Hemostasis was assured. Fascia closure device with an 0 Vicryl stitch was used to close the fascia of the large port site. Liver retractor was removed under direct vision. Ports were removed under direct vision. Pneumoperitoneum was released. Final port was removed. All skin incisions were closed with 4-0 Monocryl subcuticular stitches. More local analgesia was injected. Appropriate dressings were applied. The patient tolerated the procedure well. There were no complications. MONTEFIORE NYACK HOSPITALSuzanne
[2019-01-12] MEDS: HYDROCOD/ACETAMIN 2.5-108/5 ML 5 ML UDC PO PRN (18:00)
[2019-01-12] MEDS ORDERED: ENOXAPARIN 40 MG/0.4ML SYR SC SCH (20:00)
[2019-01-13 03:30] VITALS: BP 136/65
[2019-01-13] MEDS: HYDROCOD/ACETAMIN 2.5-108/5 ML 5 ML UDC PO PRN (05:10)
[2019-01-13 07:15] VITALS: BP 152/70
--- NOTE | 2019-01-13 07:42 | General Surgery Progress Note ---
Subjective Progress Notes Subjective doing well. minimal abd pain. flavia clears. wants to go home. Physical Exam Vital Signs Date Time Temp Pulse Resp B/P (MAP) Pulse Ox O2 Delivery O2 Flow Rate FiO2 01/13/19 07:15 99.1 68 18 152/70 (97) 95 Nasal Cannula 3.0 Intake and Output 01/13/19 07:00 Intake Total 4983 ml Balance 4983 ml Intake Oral 300 ml IV Total 2633 ml Other 2050 ml # Voids 6 General Appearance: No Acute Distress Cardiovascular: Other (reg rate) GI: Other (soft) Assessment and Plan Problems: (1) Large hiatal hernia Status: Chronic Assessment & Plan: 01/13/19: s/p repair. doing well. full liquid diet. on lovenox. home today. Exam Sepsis Risk: No Definite Risk BERT DEAN Jan 13, 2019 07:42
[2019-01-13] MEDS ORDERED: DULoxetine HCL 30 MG CAPCR PO SCH (09:00)
[2019-01-13] MEDS ORDERED: AMIODARONE 200 MG TAB PO SCH (09:00)
[2019-01-13] MEDS: GABAPENTIN 300 MG CAP PO SCH ×2 (09:36→13:12)
[2019-01-13 13:13] LABS: PLATELET COUNT, AUTOMATED 366 K/uL (150-450)
[2019-01-13] MEDS ORDERED: TRAM-420 PO (13:36)
--- NOTE | 2019-01-13 13:46 | Hospitalist Depart ---
Discharge Summary Reason for Hosp/Final Diag: (1) Large hiatal hernia Status: Chronic Hospital Course & Plan: 01/13/19: s/p repair. doing well. full liquid diet. on lovenox. home today. Departure Weight (Pounds): 169 Result Diagram: 01/13/19 1305 01/13/19 1305 Condition: Improved Discharge Instructions Home Meds Active Scripts Tramadol Hcl (TRAMADOL HCL) 50 Mg Tablet, 50 MG PO Q4H for PAIN, #20 TAB Prov:BERT RAMIREZ 01/13/19 Warfarin Sodium (WARFARIN SODIUM) 5 Mg Tablet, 5 MG PO QDAY, #30 TAB 6 Refills Alcantara 5 MG, M 2.5 MG, Tu 5 MG, W 2.5 MG, Th 5 MG, F 2.5 MG, Sa 5 MG Prov:FAUSTO JOHNSON MD 11/18/18 Omeprazole (OMEPRAZOLE) 40 Mg Capsule., 1 TAB PO QDAY for 90 Days, #90 CAP 3 Refills Prov:FAUSTO JOHNSON MD 11/18/18 Duloxetine Hcl (CYMBALTA) 60 Mg Capsule.dr, 60 MG PO QDAY, #90 CAP 2 Refills Prov:FAUSTO JOHNSON MD 10/27/18 Mirtazapine (MIRTAZAPINE) 30 Mg Tablet, 30 MG PO QHS, #30 TAB 3 Refills Prov:FAUSTO JOHNSON MD 08/03/18 Reported Medications Ferrous Sulfate (FERROUS SULFATE) 325 Mg Tablet, 1-2 TAB PO QDAY 01/07/19 Amiodarone Hcl (AMIODARONE HCL) Unknown Strength Tablet, 200 MG PO QDAY, TAB 09/15/18 Gabapentin (GABAPENTIN) 600 Mg Tablet, 600 MG PO QID 07/28/18 Activity: No Heavy Lifting Special Instructions: full liquid diet for 7 days. after 7 days ok to eat food, but no meat or bread for 1 mo. no lifting more than 15 lbs for 3 wks. ok to shower. take stool softener if taking pain meds. f/u dr. merlyn ramirez 2 wks ([phone]). Venous Thromboembolism Antithrombotics Is Pt On Any Antithrombotics?: Yes BERT RAMIREZ Jan 13, 2019 13:46
[2019-01-13] MEDS ORDERED: MIRTAZAPINE 30 MG TAB 30 MG TAB PO SCH (21:00)
== END 2019-01-13 13:47 | disposition home or self-care (01) ==
LOC: OR 00:44 → INTOOBSV 14:15 → MED 14:15 → UNDOADMOB 14:15
PROVIDERS: ADMIT Surgery; ATTEND Surgery
DX: K44.9 Diaphragmatic hernia without obstruction or gangrene (principal); G47.33 Obstructive sleep apnea (adult) (pediatric); I48.91 Unspecified atrial fibrillation
CPT/HCPCS: 36415; 43280; 85025; 85610; 86850; 86900; 86901; 96372; A9270; G0378; J1100; J1650; J2001; J2405; J2704; J3010; J3490; J7030; J7040; 82310; 82374; 82435; 82565; 82947; 84132; 84295; 84520; J0690

== ENCOUNTER → 2019-01-27 | Outpatient (CLI) | payer MEDICARE, OTHER ==
[2018-11-13 08:57] VITALS: BMI 29.4
[~2019-01-27] MED LIST changes: -LIDOCAINE/SOD BICARB 8.4% SYR ID ONE; +TRAM-420 PO
[2019-01-27 12:11] LABS: INR 2.74
== END ==
LOC: LAB 11:48
PROVIDERS: ATTEND Internal Medicine
DX: Z51.81 Encounter for therapeutic drug level monitoring (principal); Z79.01 Long term (current) use of anticoagulants; I48.0 Paroxysmal atrial fibrillation
CPT/HCPCS: 36415; 85610

== ENCOUNTER → 2019-03-01 | Outpatient (CLI) | payer MEDICARE, OTHER ==
[2018-11-13 08:57] VITALS: BMI 29.4
[2019-03-01 11:44] LABS: INR 3.72
[2019-03-01 11:45] LABS: PLATELET COUNT, AUTOMATED 415 K/uL (150-450)
[2019-03-01 12:28] LABS: LDL CHOLESTEROL 85 mg/dl
== END ==
LOC: LAB 11:03
PROVIDERS: ATTEND Internal Medicine
DX: N94.9 Unspecified condition associated with female genital organs and menstrual cycle (principal); K62.5 Hemorrhage of anus and rectum; I48.91 Unspecified atrial fibrillation; K27.9 Peptic ulcer, site unspecified, unspecified as acute or chronic, without hemorrhage or perforation; D64.9 Anemia, unspecified; G62.9 Polyneuropathy, unspecified; G47.33 Obstructive sleep apnea (adult) (pediatric); F41.9 Anxiety disorder, unspecified; Z86.69 Personal history of other diseases of the nervous system and sense organs
CPT/HCPCS: 36415; 82040; 82247; 82310; 82374; 82435; 82465; 82565; 82607; 82728; 82746; 82947; 83540; 83550; 83718; 84075; 84132; 84155; 84295; 84443; 84450; 84460; 84478; 84520; 85025; 85610; 86304

== ENCOUNTER → 2019-03-18 | Outpatient (CLI) | payer MEDICARE, OTHER ==
[2018-11-13 08:57] VITALS: BMI 29.4
== END ==
LOC: LAB 12:48
PROVIDERS: ATTEND Internal Medicine
DX: I48.1 Persistent atrial fibrillation (principal)
CPT/HCPCS: 36415; 82310; 82374; 82435; 82565; 82947; 84132; 84295; 84520; 85027

== ENCOUNTER → 2019-03-19 | Outpatient (CLI) | payer MEDICARE, OTHER ==
[2018-11-13 08:57] VITALS: BMI 29.4
[2019-03-19 14:58] LABS: INR 2.64
== END ==
LOC: LAB 14:15
PROVIDERS: ATTEND Internal Medicine
DX: Z51.81 Encounter for therapeutic drug level monitoring (principal); I48.1 Persistent atrial fibrillation; Z79.01 Long term (current) use of anticoagulants
CPT/HCPCS: 36415; 85610